=== PATIENT | female | born 1945 | race Caucasian/White ===

== ENCOUNTER 2017-05-07 18:41 | Inpatient (IN) | payer MEDICARE, BC ==
[~2017-05-07] VITALS: Ht 165.1 cm; Wt 67.6 kg
[~2017-05-07 18:41] MED LIST: /PANT40TA; /PANT40TA OR; /WARF5TA OR; ACET65TA; ALDA25TA2; ATEN25TA; ATEN25TA OR; ATENPOW; COUMADIN; KEFL500C; LISI20TA5 OR; PAIN325T OR; PRIN20TA3; SPIR25TA2 OR; THERGRAN; VITAMIN B6
[2017-05-07] MEDS ORDERED: LISI-538 PO (18:57)
[2017-05-07] MEDS ORDERED: ASPI1TAB PO (18:57)
[2017-05-07] MEDS ORDERED: ONDANSETRON 4MG/2ML VIAL (J2405) IV ONE (19:15)
[2017-05-07] MEDS ORDERED: MORPHINE 4 MG/ML 1ML SYRINGE IV ONE ×2 (19:15→20:15)
[2017-05-07 19:56] LABS: MEAN CORPUSCULAR HEMOGLOBIN 32.8 pg (27.0-33.0); MEAN CORPUSCULAR HGB CONC 33.6 g/dl (32.0-36.5); MEAN CORPUSCULAR VOLUME 97.4 fl (80.0-96.0); PLATELET COUNT, AUTOMATED 251 10^3/uL (150-450); RED CELL DISTRIBUTION WIDTH 13.2 % (11.5-14.5); WHITE BLOOD COUNT 6.9 10^3/uL (4.0-10.0)
[2017-05-07 19:59] LABS: ANION GAP 7 MEQ/L (8-16); BLOOD UREA NITROGEN 17 MG/DL (7-18); CALCIUM LEVEL 9.1 MG/DL (8.8-10.2); CARBON DIOXIDE LEVEL 27 MEQ/L (21-32); CHLORIDE LEVEL 101 MEQ/L (98-107); CREATININE FOR GFR 0.88 MG/DL (0.55-1.02); GLOMERULAR FILTRATION RATE > 60.0 (>45); GLUCOSE, FASTING 108 MG/DL (80-110); POTASSIUM SERUM 4.1 MEQ/L (3.5-5.1); SODIUM LEVEL 135 MEQ/L (136-145)
--- NOTE | 2017-05-07 20:12 | REP ---
Clinical: Trauma. Fall. Technique: AP view of the pelvis with AP and cross-table lateral views of the left. Findings: There is a comminuted intertrochanteric fracture of the left proximal femur with overlying soft tissue swelling. Underlying chronic age-related degenerative changes noted through the pelvis and hips. Impression: Comminuted intertrochanteric fracture of the left proximal femur. Signed by Pawel Travis MD 05/07/2017 08:04 P
--- NOTE | 2017-05-07 20:14 | REP ---
Clinical: Trauma. Fall. Technique: AP and lateral views of the femur. Findings: Comminuted intertrochanteric fracture of the proximal femur is appreciated. Mild to moderate tricompartmental degenerative changes at the knee noted. No other fracture dislocation identified. Impression: Comminuted intertrochanteric fracture of the left proximal femur. Underlying age-related osteopenia and degenerative changes. Signed by Pawel Travis MD 05/07/2017 08:05 P
--- NOTE | 2017-05-07 20:17 | REP ---
Clinical: Trauma. Fall. Comparison: 05/01/2016. Findings: Cardiomegaly and chronic interstitial changes are appreciated. No obvious acute consolidation, effusion, or pneumothorax. Skeletal structures are intact. Impression: Cardiomegaly and chronic interstitial changes. No acute cardiopulmonary process appreciated. Signed by Pawel Travis MD 05/07/2017 08:08 P
[2017-05-07] MEDS ORDERED: zolPIDEM TARTRATE 10MG TAB PO PRN (21:30)
[2017-05-07] MEDS ORDERED: ONDANSETRON 4MG/2ML VIAL (J2405) IV PRN (21:30)
[2017-05-07] MEDS ORDERED: ceFAZolin 1GM INJ (J0690) IM ONE (21:30)
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
[2017-05-07 22:40] VITALS: BP 164/95
[2017-05-07] MEDS: NS 1,000 ML IV SCH (23:09)
[2017-05-07] MEDS: METOPROLOL TART 25 MG TABLET PO SCH (23:10)
[2017-05-08] VITALS (7 sets, daily range): BP systolic 118–170; BP diastolic 72–96
[2017-05-08] MEDS ORDERED: CEFAZOLIN SOD 1 GM in APPROPRIATE DILUENT 1 EA IV SCH ×2
[2017-05-08] MEDS: MORPHINE 2 MG/ML 1ML SYRINGE IV PRN ×2 (00:18→05:41)
[2017-05-08] MEDS: ACETAMINOPHEN TAB 650MG DOSE (2X325MG) PO PRN ×2 (00:19→05:41)
--- NOTE | 2017-05-08 02:08 | HPE ---
DATE OF ADMISSION: 05/07/2017 The patient, Jade Matute, is a 71-year-old female. Patient comes in with a chief complaint of falling off of ladder. HISTORY OF PRESENT ILLNESS: Patient is a 71-year-old female with medical history significant for atrial fibrillation, not currently on rate control or anticoagulation, just aspirin. No anticoagulant secondary to severe to gastrointestinal (GI) bleeds secondary to anticoagulation in the past. Patient was doing some work up on a ladder where the ladder gave out from under her. She fell and hit the concrete on her left side. She was brought in to the emergency department (ED) where they found that she had a left-sided hip fracture. REVIEW OF SYSTEMS: Patient without any other acute complaints beyond pain secondary to the hip fracture. Patient was not dizzy or lightheaded or have balance issues prior to the fall. It was a mechanical fall. FAMILY HISTORY: Patient's mother's side with breast cancer and diabetes on her father's side. MEDICATIONS: The patient's home medications include only lisinopril and aspirin. Both hold prior to surgery. ALLERGIES: Patient with no known drug allergies. Patient with no history of smoking, drugs or alcohol abuse. PHYSICAL EXAMINATION: Patient resting when I came in, was in some pain secondary to the fracture; however, was not rising, lying still and calmly. Alert and oriented times three with normal affect and normal mood. Patient actually in a good mood. S1, S2, irregular, also on the telemetry showing irregular heart beat as on EKG. On auscultation of lateral lung almaguer good inspiratory, expiratory effort. No wheezes, rhonchi or rales. Abdomen is soft, nontender to palpation. The patient's left leg is slightly flexed and rotated out and clearly shorter than the right. Patient with extreme pain on moving. Patient's upper extremities are with good range of motion. Muscular strength 5/5. Skin is warm and dry. No apparent lymphadenopathy. Neck is supple with no rigidity. Extraocular movements intact. Pupils equal and reactive to light and accommodation. Patient with grossly good hearing. Cranial nerves (CN) II-XII grossly intact. LABORATORY RESULTS: WBC 6.9, hemoglobin and hematocrit 11.5/34.2, platelet count 251. Coagulation panel within normal limits. Chemistry grossly normal. IMAGING: Impression is cardiomegaly, chronic interstitial changes, no acute cardiopulmonary process appreciated on chest x-ray. Hip x-ray shows comminuted intertrochanteric fracture of the left proximal femur , underlying age-related osteopenia and degenerative changes. ASSESSMENT AND PLAN: Patient is a 71-year-old female with previous medical history as noted above status post fall with left hip fracture. Orthopedics already saw the patient. Plan is for surgery in the morning. Patient not to be on anticoagulation postsurgery as per conversation given this extreme high risk for bleeding; however, baby aspirin versus regular aspirin to be considered. Patient's complete blood count (CBC) is to be done twice a day instead of daily to monitor for blood loss on aspirin. Although patient not on beta blockers for unclear reason, given the risks and given the borderline tachycardia of the patient at this time, I believe patient would benefit from beta blockers. Left message with patient's primary medical doctor (PMD), who the call doctor will return to me if he can ascertain the reason the patient is not currently on beta blockers. Following any other information risks versus benefit, Lopressor 12.5 twice a day to be started now and given again before surgery in the morning prior to surgery. For hypertension, will hold patient's lisinopril prior to surgery. Patient to be nothing by mouth. Atrial fibrillation. Patient on aspirin, to be held prior to surgery. Deep venous thrombosis (DVT) prophylaxis. As noted above, patient to be on intermittent pneumatic compression. Gastrointestinal (GI) prophylaxis. Patient to be on proton pump inhibitor (PPI). Type, screen and cross done. Will keep two units at the ready given patient's propensity for bleeding. I first saw patient 05/07/2017. Given the patient's fracture, need for surgical correction, I am almost certain that a two midnight stay is warranted. I have discussed the plan with Surgery and the patient has been optimized for Surgery with Precautions taken given the Hx of Bleed on AC Tx MTDD
[2017-05-08 05:50] LABS: MEAN CORPUSCULAR HEMOGLOBIN 32.6 pg (27.0-33.0); MEAN CORPUSCULAR VOLUME 95.8 fl (80.0-96.0); PLATELET COUNT, AUTOMATED 217 10^3/uL (150-450); RED CELL DISTRIBUTION WIDTH 12.9 % (11.5-14.5); WHITE BLOOD COUNT 6.3 10^3/uL (4.0-10.0)
[2017-05-08 06:07] LABS: ANION GAP 7 MEQ/L (8-16); BLOOD UREA NITROGEN 15 MG/DL (7-18); CALCIUM LEVEL 8.3 MG/DL (8.8-10.2); CARBON DIOXIDE LEVEL 25 MEQ/L (21-32); CHLORIDE LEVEL 102 MEQ/L (98-107); CREATININE FOR GFR 0.75 MG/DL (0.55-1.02); GLOMERULAR FILTRATION RATE > 60.0 (>45); GLUCOSE, FASTING 98 MG/DL (80-110); POTASSIUM SERUM 4.3 MEQ/L (3.5-5.1); SODIUM LEVEL 134 MEQ/L (136-145)
--- NOTE | 2017-05-08 07:23 | IPNPDOC ---
Text Note Date of Service The patient was seen on 05/08/17. NOTE Patient has been medically optimized for planned surgical intervention today as per discussion with admitting physician. VS,Fishbone, I+O VS, Fishbone, I+O Laboratory Tests 05/07/17 19:30 Red Blood Count 3.51 L, Mean Corpuscular Volume 97.4 H, Mean Corpuscular Hemoglobin 32.8, Mean Corpuscular Hemoglobin Concent 33.6, Red Cell Distribution Width 13.2, Calcium Level 9.1 05/08/17 05:08 Red Blood Count 3.07 L, Mean Corpuscular Volume 95.8, Mean Corpuscular Hemoglobin 32.6, Mean Corpuscular Hemoglobin Concent 34.0, Red Cell Distribution Width 12.9, Calcium Level 8.3 L Vital Signs Date Time Temp Pulse Resp B/P (MAP) Pulse Ox O2 Delivery O2 Flow Rate FiO2 05/08/17 06:00 97.4 73 16 118/77 (91) 99 Room Air I&O- Last 24 Hours up to 6 AM 05/09/17 06:00 Intake Total 800 ml Balance 800 ml HAI HENSON MD May 08, 2017 07:23
[2017-05-08] MEDS: NS 1,000 ML IV SCH ×2 (08:56→17:14)
[2017-05-08] MEDS: PANTOPRAZOLE 40MG TAB (PROTONIX) PO SCH (08:56)
[2017-05-08] MEDS: METOPROLOL TART 25 MG TABLET PO SCH (08:59)
[2017-05-08] MEDS ORDERED: ceFAZolin 1GM INJ (J0690) As Ordered ONE (09:30)
[2017-05-08] MEDS ORDERED: ceFAZolin 2 GM/D5W 50 ML IV BAG (J0690) As Ordered ONE (09:49)
[2017-05-08] MEDS ORDERED: MIDAZOLAM INJ 2 MG/2 ML VIAL (J2250) As Ordered ONE (10:20)
[2017-05-08] MEDS ORDERED: ePHEDrine SULFATE 25 MG/5 ML(5MG/ML) SYRINGE As Ordered ONE (10:20)
[2017-05-08] MEDS ORDERED: KETAMINE HCL 200 MG/20 ML VIAL As Ordered ONE (10:20)
[2017-05-08] MEDS ORDERED: PROPOFOL 200 MG/20 ML VIAL As Ordered ONE (10:20)
[2017-05-08] MEDS ORDERED: PHENYLephrine HCL 500 MCG/5 ML (100MCG/ML) SYRINGE (J2370) As Ordered ONE (10:38)
--- NOTE | 2017-05-08 11:43 | REP ---
Clinical: Open reduction and fixation. Technique: Intraoperative fluoroscopic imaging. Findings: Multiple intraoperative fluoroscopic images demonstrate the patient to be status post open reduction and fixation for intertrochanteric left hip fracture. Intermedullary thomas and compression screw are identified in satisfactory position along with satisfactory reduction of the fracture. Total fluoroscopic time 1 minute 35 seconds. Impression: Status post satisfactory open reduction and fixation for comminuted intertrochanteric fracture Signed by Pawel Travis MD 05/08/2017 11:34 A
[2017-05-08] MEDS ORDERED: MORPHINE 2 MG/ML 1ML SYRINGE IV PRN (11:45)
[2017-05-08] MEDS ORDERED: ONDANSETRON 4MG/2ML VIAL (J2405) IV PRN (11:45)
[2017-05-08] MEDS ORDERED: fentaNYL 100 MCG/2 ML INJECTION (J3010) IV PRN (11:45)
[2017-05-08] MEDS ORDERED: NS 1,000 ML IV SCH (11:45)
[2017-05-08] MEDS ORDERED: NORCO, ANEXSIA 5/325MG TABLET (HYDROcodone/ACETAMINOPHEN) PO PRN (13:00)
[2017-05-08] MEDS: NORCO, ANEXSIA 5/325MG TABLET (HYDROcodone/ACETAMINOPHEN) PO PRN ×2 (13:46→20:49)
[2017-05-08] MEDS: MORPHINE 4 MG/ML 1ML SYRINGE IV PRN ×2 (14:29→16:59)
[2017-05-08] MEDS: ONDANSETRON 4 MG TAB (S0181) PO PRN (17:14)
[2017-05-08 18:06] LABS: BASO % 0.6 % (0.0-1.0); EOS % 0.3 % (0.0-3.0); IMMATURE GRANULOCYTE % 0.3 % (0-0); LYMPH # 0.9 10^3/uL (1.5-4.5); LYMPH % 12.5 % (24.0-44.0); MEAN CORPUSCULAR HEMOGLOBIN 32.7 pg (27.0-33.0); MEAN CORPUSCULAR HGB CONC 33.3 g/dl (32.0-36.5); MEAN CORPUSCULAR VOLUME 98.2 fl (80.0-96.0); MONO # 0.5 10^3/uL (0.0-0.8); MONO % 7.3 % (0.0-5.0); NEUTROPHILS # 5.7 10^3/uL (1.8-7.7); PLATELET COUNT, AUTOMATED 196 10^3/uL (150-450); RED CELL DISTRIBUTION WIDTH 13.1 % (11.5-14.5); WHITE BLOOD COUNT 7.3 10^3/uL (4.0-10.0)
[2017-05-08] MEDS: METOPROLOL TART 12.5 MG PER 1/2 TAB PO SCH (20:48)
[2017-05-09] MEDS: ONDANSETRON 4 MG TAB (S0181) PO PRN ×2 (01:14→09:35)
[2017-05-09] MEDS: NORCO, ANEXSIA 5/325MG TABLET (HYDROcodone/ACETAMINOPHEN) PO PRN ×5 (01:16→21:13)
[2017-05-09 02:00] VITALS: BP 141/79
[2017-05-09 06:00] VITALS: BP 115/75
[2017-05-09 06:47] LABS: MEAN CORPUSCULAR HEMOGLOBIN 32.9 pg (27.0-33.0); MEAN CORPUSCULAR HGB CONC 33.5 g/dl (32.0-36.5); MEAN CORPUSCULAR VOLUME 98.4 fl (80.0-96.0); PLATELET COUNT, AUTOMATED 171 10^3/uL (150-450); RED CELL DISTRIBUTION WIDTH 13.1 % (11.5-14.5); WHITE BLOOD COUNT 5.3 10^3/uL (4.0-10.0)
[2017-05-09] MEDS: NS 1,000 ML IV SCH (07:01)
[2017-05-09 07:08] LABS: ANION GAP 6 MEQ/L (8-16); BLOOD UREA NITROGEN 10 MG/DL (7-18); CALCIUM LEVEL 8.3 MG/DL (8.8-10.2); CARBON DIOXIDE LEVEL 26 MEQ/L (21-32); CHLORIDE LEVEL 105 MEQ/L (98-107); CREATININE FOR GFR 0.63 MG/DL (0.55-1.02); GLOMERULAR FILTRATION RATE > 60.0 (>45); GLUCOSE, FASTING 110 MG/DL (80-110); SODIUM LEVEL 137 MEQ/L (136-145)
--- NOTE | 2017-05-09 07:31 | RO ---
DATE OF PROCEDURE: 05/08/2017 PREOPERATIVE DIAGNOSIS: Left intertrochanteric hip fracture. POSTOPERATIVE DIAGNOSIS: Left intertrochanteric hip fracture. PROCEDURE: Left intertrochanteric hip fracture with fixation with short trochanteric femoral nail with a 100 mm cephalomedullary twist nail. SURGEON: Angela Johnson MD SENIOR SUPPORT ENGINEER: ANESTHESIA: Spinal. COMPLICATIONS: None. ESTIMATED BLOOD LOSS: 50 mL. DESCRIPTION OF PROCEDURE: Antibiotics were given intravenously preoperatively. A successful spinal anesthetic was induced then she was placed on the fracture table. Her well leg was wrapped in pillows and secured to the frame of the fracture table. Her left hip was placed in traction in the usual fashion, then a closed reduction was performed under fluoroscopic imaging confirming that we could get reasonable reduction. The left hip area was then carefully prepped and draped in the usual sterile fashion. Then, after appropriate time out, under fluoroscopic image, a small approximately 1-2 inch incision was made proximal to the greater trochanter. Bovie cautery was used to coagulate the crossing vessels. The tensor fascia was divided. The tip of the trochanteric change management director awl was placed in the appropriate position and the threaded ball tip guide thomas was placed down the canal. At first, it looked like we were just a bit to posterior and thus I readjusted the entry to more anterior on the trochanter and that was quite acceptably aligned in the AP and lateral planes. The proximal drill was then used to drill down to the level of the lesser trochanter and the short 130 degree trochanteric femoral nail was inserted. We chose the 130 degrees because preoperatively we measured on her opposite right hip to be greater than 130, but it actually measured 135, but the only available nail was a 125 or 130. I felt that 130 was most appropriate therefore. The nail was introduced and set appropriate. I made a small incision through the cephalomedullary nail drill guide hole on the introducing device, then advanced the drill sleeve to the lateral femoral cortex under fluoroscopic imaging. I then drilled the threaded guidepin such that it came out approximately centered in the femoral neck and the femoral head on the AP and lateral planes. Once we were satisfied with the position, we measured and elected to drill to 100 mm and that was do so, and then we advanced the cephalomedullary twist nail into the appropriate position. We then locked it proximally and then backed off a quarter of a turn, and then I removed the change management director for the cephalomedullary nail. Then the scalpel blade was used to make a small stab incision for the distal interlock and the distal interlock screw sleeve guide was advanced to the lateral femoral cortex. Then under fluoroscopic imaging we drilled and measured at 34 mm and then a 34 mm screw was placed with excellent purchase. I then removed all the insertion devices and I got good final fluoroscopic imaging in the AP and lateral planes showing good reduction of the fracture and good position of the hardware. I copiously irrigated the wound proximally, closed the tensor fascia with interrupted #1 PDS sutures. Subdermal tissues were closed with interrupted #2-0 PDS sutures. The skin was closed with mani and covered by Adaptic dry sterile bulky dressing. She was then transferred off the fracture table to her bed and went to the recovery room in stable condition. There were no intraoperative complications.
[2017-05-09] MEDS: PANTOPRAZOLE 40MG TAB (PROTONIX) PO SCH (08:08)
[2017-05-09] MEDS: ASPIRIN 325 MG TAB PO SCH (08:08)
[2017-05-09] MEDS: MIRALAX *UNIT DOSE* 17GM PACKET PO SCH (08:09)
[2017-05-09] MEDS: SENOKOT S TAB PO SCH ×2 (08:09→21:12)
[2017-05-09] MEDS: METOPROLOL TART 12.5 MG PER 1/2 TAB PO SCH ×2 (08:09→21:14)
[2017-05-09] MEDS: MOM 30ML SUSPENSION UDC PO SCH ×3 (08:09→17:07)
--- NOTE | 2017-05-09 08:57 | IPNPDOC ---
Text Note Date of Service The patient was seen on 05/09/17. NOTE Subjective: Patient seen and examined at bedside. No acute overnight events. Patient has some pain in her left leg, otherwise no new medical complaints. Objective: General: NAD, lying comfortably in bed HEENT: NC/AT, EOMI Lungs: CTA B/L Heart: +S1S2, irregularly irregular Abd: soft, NT, +BS Ext: no edema ASSESSMENT AND PLAN: Patient is a 71-year-old female with previous medical history as noted above status post fall with left hip fracture. 1. Left hip Fx. POD #1. Continue to follow as per ortho. 2. Afib. Patient did not tolerate oral anticoagulation as outpatient. Will continue with aspirin, dosage as per ortho. BB was also started as inpatient. 3. HTN - ACEI on hold. BB as per above. 4. DVT prophylaxis - as per ortho. 5. GI prophylaxis. Patient started on PPI on admission. Dispo: pending further follow up by ortho, PT VS,Antonio, I+O VS, Antonio, I+O Laboratory Tests 05/08/17 17:54 Red Blood Count 2.78 L, Mean Corpuscular Volume 98.2 H, Mean Corpuscular Hemoglobin 32.7, Mean Corpuscular Hemoglobin Concent 33.3, Red Cell Distribution Width 13.1, Neutrophils (%) (Auto) 79.0 H, Lymphocytes (%) (Auto) 12.5 L, Monocytes (%) (Auto) 7.3 H, Eosinophils (%) (Auto) 0.3, Basophils (%) ( Auto) 0.6, Neutrophils # (Auto) 5.7, Lymphocytes # (Auto) 0.9 L, Monocytes # ( Auto) 0.5, Eosinophils # (Auto) 0.0, Basophils # (Auto) 0.0 05/09/17 06:16 Red Blood Count 2.58 L, Mean Corpuscular Volume 98.4 H, Mean Corpuscular Hemoglobin 32.9, Mean Corpuscular Hemoglobin Concent 33.5, Red Cell Distribution Width 13.1, Calcium Level 8.3 L Vital Signs Date Time Temp Pulse Resp B/P (MAP) Pulse Ox O2 Delivery O2 Flow Rate FiO2 05/09/17 08:09 92 116/79 05/09/17 07:15 16 05/09/17 06:00 98.8 99 Room Air 05/08/17 11:45 2 HAI HENSON MD May 09, 2017 08:57
--- NOTE | 2017-05-09 09:58 | REP ---
Clinical: Postoperative evaluation. Technique: AP and cross-table lateral views of the left hip. Findings: The patient is status post open reduction and fixation for left intertrochanteric fracture. Satisfactory reduction at the hip joint noted. Overlying postsurgical changes are appreciated. Impression: Status post open reduction and fixation for intertrochanteric femoral neck fracture. Signed by Pawel Travis MD 05/09/2017 09:49 A
[2017-05-09 10:00] VITALS: BP 124/64
[2017-05-09 14:00] VITALS: BP 110/65
[2017-05-09 18:12] LABS: BASO % 0.6 % (0.0-1.0); EOS # 0.1 10^3/uL (0.0-0.50); EOS % 0.9 % (0.0-3.0); IMMATURE GRANULOCYTE % 0.3 % (0-0); LYMPH % 15.3 % (24.0-44.0); MEAN CORPUSCULAR HEMOGLOBIN 33.1 pg (27.0-33.0); MEAN CORPUSCULAR HGB CONC 33.6 g/dl (32.0-36.5); MEAN CORPUSCULAR VOLUME 98.5 fl (80.0-96.0); MONO # 0.6 10^3/uL (0.0-0.8); MONO % 9.3 % (0.0-5.0); NEUTROPHILS # 4.7 10^3/uL (1.8-7.7); NEUTROPHILS % 73.6 % (36.0-66.0); PLATELET COUNT, AUTOMATED 172 10^3/uL (150-450); WHITE BLOOD COUNT 6.4 10^3/uL (4.0-10.0)
[2017-05-09 22:00] VITALS: BP 119/71
[2017-05-10] MEDS: NORCO, ANEXSIA 5/325MG TABLET (HYDROcodone/ACETAMINOPHEN) PO PRN ×5 (02:44→22:30)
[2017-05-10 06:00] VITALS: BP 121/66
[2017-05-10 07:08] LABS: MEAN CORPUSCULAR HEMOGLOBIN 32.9 pg (27.0-33.0); MEAN CORPUSCULAR HGB CONC 33.3 g/dl (32.0-36.5); MEAN CORPUSCULAR VOLUME 98.7 fl (80.0-96.0); PLATELET COUNT, AUTOMATED 151 10^3/uL (150-450); WHITE BLOOD COUNT 5.6 10^3/uL (4.0-10.0)
[2017-05-10 07:25] LABS: ANION GAP 6 MEQ/L (8-16); BLOOD UREA NITROGEN 10 MG/DL (7-18); CALCIUM LEVEL 8.3 MG/DL (8.8-10.2); CARBON DIOXIDE LEVEL 26 MEQ/L (21-32); CHLORIDE LEVEL 102 MEQ/L (98-107); CREATININE FOR GFR 0.54 MG/DL (0.55-1.02); GLOMERULAR FILTRATION RATE > 60.0 (>45); GLUCOSE, FASTING 106 MG/DL (80-110); POTASSIUM SERUM 4.1 MEQ/L (3.5-5.1); SODIUM LEVEL 134 MEQ/L (136-145)
[2017-05-10] MEDS ORDERED: ASPI325T PO (07:36)
[2017-05-10] MEDS ORDERED: PERC5TAB12 PO (07:36)
--- NOTE | 2017-05-10 07:45 | IPNPDOC ---
Text Note Date of Service The patient was seen on 05/10/17. NOTE Subjective: Patient seen and examined at bedside. No acute overnight events. States she is feeling better. Her appetite has improved. She still has some pain in her left leg, otherwise no new medical complaints. Objective: General: NAD, lying comfortably in bed HEENT: NC/AT, EOMI Lungs: CTA B/L Heart: +S1S2, irregularly irregular Abd: soft, NT, +BS Ext: no edema ASSESSMENT AND PLAN: Patient is a 71-year-old female with previous medical history as noted above status post fall with left hip fracture. 1. Left hip Fx. POD #2. Continue to follow as per ortho. 2. Afib. Patient did not tolerate oral anticoagulation as outpatient. Will continue with aspirin, dosage as per ortho. BB was also started as inpatient. 3. HTN - ACEI on hold. BB as per above. 4. DVT prophylaxis - as per ortho. 5. GI prophylaxis. Patient started on PPI on admission. 6. Anemia - asymptomatic, ordered serial H/H, transfuse if Hg<7 Dispo: pending further follow up by ortho, PT, ARU VS,Antonio, I+O VS, Antonio, I+O Laboratory Tests 05/09/17 18:00 Red Blood Count 2.63 L, Mean Corpuscular Volume 98.5 H, Mean Corpuscular Hemoglobin 33.1 H, Mean Corpuscular Hemoglobin Concent 33.6, Red Cell Distribution Width 13.0, Neutrophils (%) (Auto) 73.6 H, Lymphocytes (%) (Auto) 15.3 L, Monocytes (%) (Auto) 9.3 H, Eosinophils (%) (Auto) 0.9, Basophils (%) ( Auto) 0.6, Neutrophils # (Auto) 4.7, Lymphocytes # (Auto) 1.0 L, Monocytes # ( Auto) 0.6, Eosinophils # (Auto) 0.1, Basophils # (Auto) 0.0 05/10/17 06:15 Red Blood Count 2.31 L, Mean Corpuscular Volume 98.7 H, Mean Corpuscular Hemoglobin 32.9, Mean Corpuscular Hemoglobin Concent 33.3, Red Cell Distribution Width 13.0, Calcium Level 8.3 L Vital Signs Date Time Temp Pulse Resp B/P (MAP) Pulse Ox O2 Delivery O2 Flow Rate FiO2 05/10/17 06:00 97.6 82 18 121/66 (84) 95 Room Air 05/08/17 11:45 2 HAI HENSON MD May 10, 2017 07:45
[2017-05-10] MEDS: MIRALAX *UNIT DOSE* 17GM PACKET PO SCH (07:58)
[2017-05-10] MEDS: METOPROLOL TART 12.5 MG PER 1/2 TAB PO SCH ×2 (07:58→21:06)
[2017-05-10] MEDS: MOM 30ML SUSPENSION UDC PO SCH (07:58)
[2017-05-10] MEDS: PANTOPRAZOLE 40MG TAB (PROTONIX) PO SCH (07:58)
[2017-05-10] MEDS: ASPIRIN 325 MG TAB PO SCH (07:58)
[2017-05-10] MEDS: SENOKOT S TAB PO SCH ×2 (07:59→21:00)
[2017-05-10 08:00] VITALS: BP 137/73
--- NOTE | 2017-05-10 08:04 | ECGEPIP ---
Stationary ECG Study [facility] - ED Test Date: 2017-05-07 Pat Name: PIETRO JOSEPH Department: Room: [place] [address] Gender: F Hospital Pharmacy Technician: MolinaB: [id number] Requested By: ULISES ALMONTE Order Number: [id number] Reading MD: Dejuan Horowitz Measurements Intervals [place] Rate: 82 P: GA: 0 QRS: 81 QRSD: 118 T: -47 QT: 384 QTc: 449 Interpretive Statements ATRIAL FIBRILLATION INCOMPLETE RIGHT BUNDLE BRANCH BLOCK NONSPECIFIC T-WAVE ABNORMALITY NO PRIORS FOR COMPARISON Electronically Signed On 05-10-2017 8:04:38 EST by Dejuan Horowitz
[2017-05-10] MEDS: ONDANSETRON 4 MG TAB (S0181) PO PRN (18:18)
[2017-05-10 22:00] VITALS: BP 134/75
[2017-05-11 00:33] LABS: BASO % 0.6 % (0.0-1.0); EOS # 0.2 10^3/uL (0.0-0.50); EOS % 2.1 % (0.0-3.0); IMMATURE GRANULOCYTE % 0.3 % (0-0); LYMPH # 1.9 10^3/uL (1.5-4.5); LYMPH % 26.1 % (24.0-44.0); MEAN CORPUSCULAR HEMOGLOBIN 31.3 pg (27.0-33.0); MEAN CORPUSCULAR HGB CONC 33.2 g/dl (32.0-36.5); MEAN CORPUSCULAR VOLUME 94.4 fl (80.0-96.0); MONO # 0.8 10^3/uL (0.0-0.8); MONO % 10.5 % (0.0-5.0); NEUTROPHILS # 4.4 10^3/uL (1.8-7.7); NEUTROPHILS % 60.4 % (36.0-66.0); PLATELET COUNT, AUTOMATED 174 10^3/uL (150-450); WHITE BLOOD COUNT 7.3 10^3/uL (4.0-10.0)
[2017-05-11] MEDS: NORCO, ANEXSIA 5/325MG TABLET (HYDROcodone/ACETAMINOPHEN) PO PRN ×4 (05:33→22:57)
[2017-05-11 06:00] VITALS: BP 170/95
[2017-05-11 07:14] LABS: MEAN CORPUSCULAR HEMOGLOBIN 31.7 pg (27.0-33.0); MEAN CORPUSCULAR HGB CONC 33.8 g/dl (32.0-36.5); MEAN CORPUSCULAR VOLUME 93.7 fl (80.0-96.0); PLATELET COUNT, AUTOMATED 168 10^3/uL (150-450); RED CELL DISTRIBUTION WIDTH 16.2 % (11.5-14.5); WHITE BLOOD COUNT 5.6 10^3/uL (4.0-10.0)
[2017-05-11 07:34] LABS: ANION GAP 6 MEQ/L (8-16); BLOOD UREA NITROGEN 12 MG/DL (7-18); CALCIUM LEVEL 8.2 MG/DL (8.8-10.2); CARBON DIOXIDE LEVEL 26 MEQ/L (21-32); CHLORIDE LEVEL 99 MEQ/L (98-107); CREATININE FOR GFR 0.58 MG/DL (0.55-1.02); GLOMERULAR FILTRATION RATE > 60.0 (>45); GLUCOSE, FASTING 102 MG/DL (80-110); POTASSIUM SERUM 4.4 MEQ/L (3.5-5.1); SODIUM LEVEL 131 MEQ/L (136-145)
--- NOTE | 2017-05-11 07:44 | IPNPDOC ---
Text Note Date of Service The patient was seen on 05/11/17. NOTE Subjective: Patient seen and examined at bedside. Complains of shortness of breath, appears somewhat anxious. Required 2 units PRBC yesterday due to symptomatic anemia during PT. Objective: General: NAD, lying comfortably in bed, somewhat anxious HEENT: NC/AT, EOMI Lungs: CTA B/L Heart: +S1S2, irregularly irregular Abd: soft, NT, +BS Ext: no edema ASSESSMENT AND PLAN: Patient is a 71-year-old female with previous medical history as noted above status post fall with left hip fracture, hospital stay complicated with acute blood anemia. 1. Left hip Fx. POD #3. Continue to follow as per ortho. 2. Afib. Patient did not tolerate oral anticoagulation as outpatient. Will continue with aspirin, dosage as per ortho. BB was also started as inpatient. 3. HTN - ACEI on hold. BB as per above. 4. DVT prophylaxis - as per ortho. 5. GI prophylaxis. Patient started on PPI on admission. 6. Anemia - acute blood loss anemia secondary to traumatic fracture and surgical repair s/p 2 units PRBC, continue to monitor H/H Dispo: monitor H/H, pending further follow up by ortho, PT, ARU VS,Antonio, I+O VS, Antonio, I+O Laboratory Tests 05/10/17 23:38 Red Blood Count 3.19 L, Mean Corpuscular Volume 94.4, Mean Corpuscular Hemoglobin 31.3, Mean Corpuscular Hemoglobin Concent 33.2, Red Cell Distribution Width 16.0 H, Neutrophils (%) (Auto) 60.4, Lymphocytes (%) (Auto) 26.1, Monocytes (%) (Auto) 10.5 H, Eosinophils (%) (Auto) 2.1, Basophils (%) ( Auto) 0.6, Neutrophils # (Auto) 4.4, Lymphocytes # (Auto) 1.9, Monocytes # (Auto ) 0.8, Eosinophils # (Auto) 0.2, Basophils # (Auto) 0.0 05/11/17 06:51 Red Blood Count 2.84 L, Mean Corpuscular Volume 93.7, Mean Corpuscular Hemoglobin 31.7, Mean Corpuscular Hemoglobin Concent 33.8, Red Cell Distribution Width 16.2 H, Calcium Level 8.2 L Vital Signs Date Time Temp Pulse Resp B/P (MAP) Pulse Ox O2 Delivery O2 Flow Rate FiO2 05/11/17 06:03 16 Room Air 05/11/17 06:00 98.5 80 170/95 (120) 99 05/08/17 11:45 2 HAI HENSON MD May 11, 2017 07:44
[2017-05-11] MEDS: ASPIRIN 325 MG TAB PO SCH (08:20)
[2017-05-11] MEDS: PANTOPRAZOLE 40MG TAB (PROTONIX) PO SCH (08:21)
[2017-05-11] MEDS: MIRALAX *UNIT DOSE* 17GM PACKET PO SCH (08:21)
[2017-05-11] MEDS: METOPROLOL TART 12.5 MG PER 1/2 TAB PO SCH ×2 (08:21→21:09)
[2017-05-11] MEDS: MOM 30ML SUSPENSION UDC PO SCH (08:21)
[2017-05-11] MEDS: SENOKOT S TAB PO SCH ×2 (08:21→21:00)
[2017-05-11 14:00] VITALS: BP 158/83
[2017-05-11 18:22] LABS: BASO % 0.7 % (0.0-1.0); EOS # 0.1 10^3/uL (0.0-0.50); EOS % 2.6 % (0.0-3.0); IMMATURE GRANULOCYTE % 0.4 % (0-0); LYMPH # 1.1 10^3/uL (1.5-4.5); LYMPH % 19.6 % (24.0-44.0); MEAN CORPUSCULAR HEMOGLOBIN 31.4 pg (27.0-33.0); MEAN CORPUSCULAR HGB CONC 33.2 g/dl (32.0-36.5); MEAN CORPUSCULAR VOLUME 94.5 fl (80.0-96.0); MONO # 0.6 10^3/uL (0.0-0.8); MONO % 10.1 % (0.0-5.0); NEUTROPHILS # 3.6 10^3/uL (1.8-7.7); NEUTROPHILS % 66.6 % (36.0-66.0); PLATELET COUNT, AUTOMATED 181 10^3/uL (150-450); WHITE BLOOD COUNT 5.4 10^3/uL (4.0-10.0)
[2017-05-11 22:00] VITALS: BP 152/78
[2017-05-12] MEDS: NORCO, ANEXSIA 5/325MG TABLET (HYDROcodone/ACETAMINOPHEN) PO PRN ×2 (05:31→10:22)
[2017-05-12 06:00] VITALS: BP 158/96
[2017-05-12 07:03] LABS: ANION GAP 5 MEQ/L (8-16); BLOOD UREA NITROGEN 11 MG/DL (7-18); CALCIUM LEVEL 8.5 MG/DL (8.8-10.2); CARBON DIOXIDE LEVEL 31 MEQ/L (21-32); CHLORIDE LEVEL 98 MEQ/L (98-107); CREATININE FOR GFR 0.48 MG/DL (0.55-1.02); GLOMERULAR FILTRATION RATE > 60.0 (>45); GLUCOSE, FASTING 97 MG/DL (80-110); POTASSIUM SERUM 4.4 MEQ/L (3.5-5.1); SODIUM LEVEL 134 MEQ/L (136-145)
[2017-05-12 07:15] LABS: MEAN CORPUSCULAR HEMOGLOBIN 31.4 pg (27.0-33.0); MEAN CORPUSCULAR HGB CONC 33.6 g/dl (32.0-36.5); MEAN CORPUSCULAR VOLUME 93.5 fl (80.0-96.0); PLATELET COUNT, AUTOMATED 182 10^3/uL (150-450); RED CELL DISTRIBUTION WIDTH 15.2 % (11.5-14.5)
[2017-05-12] MEDS: ASPIRIN 325 MG TAB PO SCH (08:35)
[2017-05-12] MEDS: PANTOPRAZOLE 40MG TAB (PROTONIX) PO SCH (08:35)
[2017-05-12 08:36] VITALS: BP 127/87
[2017-05-12] MEDS: SENOKOT S TAB PO SCH (08:36)
[2017-05-12] MEDS: MIRALAX *UNIT DOSE* 17GM PACKET PO SCH (08:36)
[2017-05-12] MEDS: METOPROLOL TART 12.5 MG PER 1/2 TAB PO SCH (08:36)
[2017-05-12] MEDS: MOM 30ML SUSPENSION UDC PO SCH (08:36)
--- NOTE | 2017-05-12 08:54 | DS.PDOC ---
Discharge Summary General Date of Admission May 07, 2017 at 21:22 Date of Discharge 05/12/17 Discharge Summary PROCEDURES PERFORMED DURING STAY: [None]. DISCHARGE DIAGNOSES: 1. Left hip fracture s/p surgical repair 2. Afib 3. HTN 4. acute blood loss anemia secondary to traumatic fx and surgical repair s/p 2 units PRBC 5. Hyponatremia COMPLICATIONS/CHIEF COMPLAINT: Hip Fx. HISTORY OF PRESENT ILLNESS: Patient is a 71-year-old female with medical history significant for atrial fibrillation, not currently on rate control or anticoagulation, just aspirin. No anticoagulant secondary to severe to gastrointestinal (GI) bleeds secondary to anticoagulation in the past. Patient was doing some work up on a ladder where the ladder gave out from under her. She fell and hit the concrete on her left side. She was brought in to the emergency department (ED) where they found that she had a left-sided hip fracture. HOSPITAL COURSE: Patient admitted for surgical repair of left hip fracture. Hospital stay significant for symptomatic anemia requiring 2 units PRBC and hyponatremia. Patient responded well to treatment, and hospital stay otherwise unremarkable. Patient discharged to ARU today for further rehab. Will continue to monitor H/H and sodium. DISCHARGE MEDICATIONS: Please see below. ALLERGIES: Please see below. PHYSICAL EXAMINATION ON DISCHARGE: GENERAL: NAD, lying comfortably in bed HEENT: NC/AT, EOMI, PERRL NECK: supple CARDIOVASCULAR EXAMINATION: +S1S2, irregular RESPIRATORY EXAMINATION: CTA B/L ABDOMINAL EXAMINATION: soft, NT, +BS NEUROLOGICAL EXAMINATION: no gross focal deficits PSYCHIATRIC EXAMINATION: AAOx3 LABORATORY DATA: Please see below. ACTIVITY: As per ARU DIET: 2 gram sodium DISCHARGE PLAN: D/C to ARU DISCHARGE INSTRUCTIONS: 1. PCP in 3-5 days on discharge. 2. Further direction as per ARU. DISCHARGE CONDITION: [Stable]. TIME SPENT ON DISCHARGE: Greater than 30 minutes. Vital Signs/I&Os Vital Signs Date Time Temp Pulse Resp B/P (MAP) Pulse Ox O2 Delivery O2 Flow Rate FiO2 05/12/17 08:36 85 127/87 05/12/17 06:01 16 Room Air 05/12/17 06:00 97.8 95 05/08/17 11:45 2 Laboratory Data Labs 24H Laboratory Tests 2 05/11/17 18:13: Immature Granulocyte % (Auto) 0.4H, White Blood Count 5.4, Red Blood Count 3.09L , Hemoglobin 9.7L, Hematocrit 29.2L, Mean Corpuscular Volume 94.5, Mean Corpuscular Hemoglobin 31.4, Mean Corpuscular Hemoglobin Concent 33.2, Red Cell Distribution Width 16.0H, Platelet Count 181, Neutrophils (%) (Auto) 66.6H, Lymphocytes (%) (Auto) 19.6L, Monocytes (%) (Auto) 10.1H, Eosinophils (%) (Auto ) 2.6, Basophils (%) (Auto) 0.7, Neutrophils # (Auto) 3.6, Lymphocytes # (Auto) 1.1L, Monocytes # (Auto) 0.6, Eosinophils # (Auto) 0.1, Basophils # (Auto) 0.0, Immature Granulocyte # (Auto) 0.0, Nucleated Red Blood Cells % (auto) 0.0 05/12/17 06:09: Nucleated Red Blood Cells % (auto) 0.0, Anion Gap 5L, Glomerular Filtration Rate > 60.0, Blood Urea Nitrogen 11, Creatinine 0.48L, Sodium Level 134L, Potassium Level 4.4, Chloride Level 98, Carbon Dioxide Level 31, Calcium Level 8.5L CBC/BMP Laboratory Tests 05/11/17 18:13 Red Blood Count 3.09 L, Mean Corpuscular Volume 94.5, Mean Corpuscular Hemoglobin 31.4, Mean Corpuscular Hemoglobin Concent 33.2, Red Cell Distribution Width 16.0 H, Neutrophils (%) (Auto) 66.6 H, Lymphocytes (%) (Auto ) 19.6 L, Monocytes (%) (Auto) 10.1 H, Eosinophils (%) (Auto) 2.6, Basophils (% ) (Auto) 0.7, Neutrophils # (Auto) 3.6, Lymphocytes # (Auto) 1.1 L, Monocytes # (Auto) 0.6, Eosinophils # (Auto) 0.1, Basophils # (Auto) 0.0 05/12/17 06:09 Red Blood Count 2.93 L, Mean Corpuscular Volume 93.5, Mean Corpuscular Hemoglobin 31.4, Mean Corpuscular Hemoglobin Concent 33.6, Red Cell Distribution Width 15.2 H, Calcium Level 8.5 L Discharge Medications Scheduled Aspirin (Aspirin) 325 Mg Tab, 1 TAB PO DAILY X 3 Weeks Lisinopril (Lisinopril) 20 Mg Tab, 20 MG PO DAILY, (Reported) Scheduled PRN Oxycodone/Acetaminophen (Percocet 5-325 mg) 1 Tab Tab, 1-2 TAB PO Q4H PRN for PAIN Allergies Coded Allergies: No Known Drug Allergy (Verified Allergy, Unknown, 05/07/17) HAI HENSON MD May 12, 2017 08:54
== END 2017-05-12 11:55 | DRG 481 ==
LOC: EDBD 18:41 → M ED 18:41 → M ED INP 21:22 → M MS5PR 22:40
PROVIDERS: ADMIT Internal Medicine; ATTEND Internal Medicine
PROC: 0QS704Z Reposition Left Upper Femur with Internal Fixation Device, Open Approach (ICD-10-PCS; principal; 2017-05-08 09:30)
PROC: 30233N1 Transfusion of Nonautologous Red Blood Cells into Peripheral Vein, Percutaneous Approach (ICD-10-PCS; 2017-05-10)
DX: S72.142A Displaced intertrochanteric fracture of left femur, initial encounter for closed fracture (principal); D62 Acute posthemorrhagic anemia; E87.1 Hypo-osmolality and hyponatremia; I48.91 Unspecified atrial fibrillation; I10 Essential (primary) hypertension; W11.XXXA Fall on and from ladder, initial encounter; Y92.018 Other place in single-family (private) house as the place of occurrence of the external cause; Y93.9 Activity, unspecified; Y99.9 Unspecified external cause status; Z79.82 Long term (current) use of aspirin; Z79.899 Other long term (current) drug therapy

== ENCOUNTER 2017-05-11 10:41 | Inpatient (IN) | payer MEDICARE, BC ==
[~2017-05-11] VITALS: Ht 165.1 cm; Wt 67.6 kg
[~2017-05-11 10:41] MED LIST changes: +ASPI1TAB PO; +ASPI325T PO; +LISI-538 PO; +PERC5TAB12 PO
[2017-05-12] MEDS ORDERED: zolPIDEM TARTRATE 10MG TAB PO PRN (10:15)
[2017-05-12] MEDS ORDERED: MOM 30ML SUSPENSION UDC PO PRN (10:15)
[2017-05-12] MEDS ORDERED: MIRALAX *UNIT DOSE* 17GM PACKET PO PRN (10:15)
[2017-05-12 13:00] VITALS: BP 122/80
[2017-05-12] MEDS: NORCO, ANEXSIA 5/325MG TABLET (HYDROcodone/ACETAMINOPHEN) PO PRN ×2 (14:52→19:56)
[2017-05-12 15:00] VITALS: BP 155/79
--- NOTE | 2017-05-12 18:11 | PMRHPE ---
DATE OF ADMISSION: 05/12/2017 REASON FOR ADMISSION: Rehabilitation of left hip fracture complicated by probable GI bleed and severe anemia, status post transfusion, and atrial fibrillation with respiratory desaturation. HISTORY OF PRESENT ILLNESS: The patient is a 71-year-old white female who lives independently at home in a two story house with basement. On 05/07/2017 she was on a step stool in her basement and fell onto her left hip sustaining a left hip fracture and was brought to [facility] emergency department and found to have an intertrochanteric hip fracture and was evaluated by orthopedics and elected to have open reduction, internal fixation with intramedullary nail and screw fixation on the same day. The patient who has history of severe GI bleed whenever on anticoagulation for her atrial fibrillation, previously on Coumadin and Xarelto having a bleed developed severe blood loss in the postoperative course and desaturated to 79 during a treatment in physical therapy, and marked hypotension. The patient received transfusion times two and since then has had some problems with hypertension. Her respiratory compromise has cleared up. She has been progressing well in physical and occupational therapy and is very motivated to regain independence to return to living in her home alone. Her course also has involved some hyponatremia. PAST MEDICAL HISTORY: As noted above includes atrial fibrillation, hypertension, recurrent GI blood losses, hyponatremia. FAMILY HISTORY: Noncontributory. SOCIAL HISTORY: The patient lives alone. She is right-handed. She does not smoke, drink alcohol or use illicit drugs and was previously independent in all activities of daily living (ADLs) and mobility. She does have numerous children and some grandchildren. MEDICATIONS ON ADMISSION: - Tylenol - [place] 5/325 - aspirin 325 mg daily - Senokot S - Lopressor 12.5 mg twice a day - milk of magnesia 3 mL daily as needed constipation - pantoprazole 40 mg every day - MiraLAX one packet daily as needed constipation - Ambien 10 mg at bedtime as needed insomnia ALLERGIES: The patient with no known drug allergies. REVIEW OF SYSTEMS: Except for symptoms previously noted above including hip pain on the left, negative on a 10-point system. PHYSICAL EXAMINATION: The patient is a pleasant, alert and well oriented 5 foot 5, 67.6 kg late middle-aged white female who looks a little younger than stated age. Temperature is 97.5, blood pressure 155/79, pulse 87, respirations 16, and pulse oximetry 100% on room air. HEENT: Normocephalic, atraumatic. Pupils are equal, round, reactive to light and accommodation. Extraocular motions are intact. Patient uses glasses for visual correction. Oropharynx without notable lesion. Tongue is midline. No facial droop. Hearing is intact. Neck supple. Lungs are clear in all [place] of auscultation. Coronary shows an irregularly irregular rate and rhythm with 2 out of 4 bilateral radial pulses. Abdomen is mildly obese with normal bowel sounds in all quadrants. No tenderness noted. The patient with some guarding around left hip, but normal range of motion in bilateral upper and right lower extremity. Neurologically she is alert and oriented to person, place, time and situation. Speech is clear, coherent and appropriate with no dysarthria or fluid or breath control deficits. Memory is intact. Mood is pleasant, minimal anxiousness. Motor shows good to full strength in bilateral upper extremities and right lower extremity. Left lower extremity with some guarding. Light touch and vibration are intact in bilateral upper and lower extremities. Tone is within normal limits in bilateral upper and lower extremities. Knee jerks are 2 out of 4. Ankles 1 out of 4. Toes downgoing on plantar stimulation. Biceps, triceps, brachial radialis are 2 out of 4 in the upper extremities with normal tone as well. LABORATORY DATA: Hemoglobin and hematocrit is 9.2 and 27.4 with normal white count MCV and platelet count. BMP shows mild hyponatremia of 134 with normal potassium, chloride, bicarbonate, BUN and slightly low normal creatinine and normal fasting glucose. X-rays show good alignment in the postoperative period of the fixation and the bones. ASSESSMENT AND PLAN: Diagnoses: 1. Rehabilitation of left hip fracture, complicated by bleed and pulmonary and cardiac affects of that: The patient seems to have responded to the transfusion and is being started in physical and occupational therapy with education and training by rehabilitation nurse and physiatry. Overall, the patient seems to be very motivated and I anticipate will do very well learning self-care and working to increase her strength and mobility. We will however need to be on watch for the secondary affects that she has recently been through with her history of multiple GI bleeds. I anticipate the patient will require 7 days to reach discharge. 2. GI bleed with severe anemia, now moderate: Will go ahead and continue to monitor hemoglobin and hematocrit and blood pressure medication has been consulted regarding this patient. 3. Hyponatremia. This seems to be responding to care by medicine service who will go ahead and continue this. 4. Atrial fibrillation. At this time anticoagulation will consist only of aspirin which is what she has been on for a while. She does have therefore with her atherosclerotic cardiovascular disease and hypertension, risk factors for deep venous thrombosis (DVT) and therefore will be important to keep her hydrated and keep her ambulating as these are the best defenses against clot formation beyond the aspirin. However, will also proceed with thromboembolism deterrents (TEDs) and sequential stockings. Consultation has been sent to orthopedics to continue to monitor and participate in care of this patient as well as medicine service. POST ADMISSION PHYSICIAN EVALUATION: The patient has been consistent with preadmission screening and record review and does have several significant medical problems related to the anemia and GI bleed problems as well as atrial fibrillation and it will be important to watch these. I do however feel the patient is highly motivated and capable of participating in the three hours of therapy per day with a good prognosis for returning home in approximately 7 days. She reports her daughter will be staying with her for a while when she does go home. Time spent on chart review, H and P and documentation is greater than 70 minutes.
[2017-05-12 20:00] VITALS: BP 158/90
[2017-05-12] MEDS: SENOKOT S TAB PO SCH (21:00)
[2017-05-12] MEDS: METOPROLOL TART 12.5 MG PER 1/2 TAB PO SCH (22:03)
[2017-05-12] MEDS: ACETAMINOPHEN TAB 650MG DOSE (2X325MG) PO PRN (22:05)
[2017-05-12 22:35] VITALS: BP 170/90
[2017-05-13] MEDS: NORCO, ANEXSIA 5/325MG TABLET (HYDROcodone/ACETAMINOPHEN) PO PRN ×4 (01:44→19:06)
[2017-05-13 06:00] VITALS: BP 164/80
[2017-05-13 07:53] LABS: BASO # 0.1 10^3/uL (0.0-0.2); BASO % 1.3 % (0.0-1.0); EOS # 0.1 10^3/uL (0.0-0.50); EOS % 3.3 % (0.0-3.0); IMMATURE GRANULOCYTE % 0.5 % (0-0); LYMPH # 0.9 10^3/uL (1.5-4.5); LYMPH % 21.9 % (24.0-44.0); MEAN CORPUSCULAR HEMOGLOBIN 31.1 pg (27.0-33.0); MEAN CORPUSCULAR VOLUME 94.3 fl (80.0-96.0); MONO # 0.4 10^3/uL (0.0-0.8); MONO % 11.1 % (0.0-5.0); NEUTROPHILS # 2.5 10^3/uL (1.8-7.7); NEUTROPHILS % 61.9 % (36.0-66.0); PLATELET COUNT, AUTOMATED 172 10^3/uL (150-450); RED CELL DISTRIBUTION WIDTH 14.7 % (11.5-14.5)
[2017-05-13 08:19] LABS: ALBUMIN 2.6 GM/DL (3.2-5.2); ALBUMIN/GLOBULIN RATIO 0.68 (1.00-1.93); ALKALINE PHOSPHATASE 53 U/L (45-117); ALT/SGPT 15 U/L (12-78); ANION GAP 6 MEQ/L (8-16); AST/SGOT 28 U/L (7-37); BILIRUBIN,TOTAL 0.8 MG/DL (0.2-1.0); BLOOD UREA NITROGEN 11 MG/DL (7-18); CALCIUM LEVEL 8.5 MG/DL (8.8-10.2); CARBON DIOXIDE LEVEL 27 MEQ/L (21-32); CHLORIDE LEVEL 101 MEQ/L (98-107); CREATININE FOR GFR 0.44 MG/DL (0.55-1.02); GLOMERULAR FILTRATION RATE > 60.0 (>45); GLUCOSE, FASTING 96 MG/DL (80-110); SODIUM LEVEL 134 MEQ/L (136-145); TOTAL PROTEIN 6.4 GM/DL (6.4-8.2)
[2017-05-13] MEDS: METOPROLOL TART 12.5 MG PER 1/2 TAB PO SCH ×2 (08:48→20:33)
[2017-05-13] MEDS: SENOKOT S TAB PO SCH ×3 (08:48→20:20)
[2017-05-13] MEDS: ASPIRIN ENTERIC 325 MG TAB PO SCH (08:49)
[2017-05-13] MEDS: PANTOPRAZOLE 40MG TAB (PROTONIX) PO SCH (08:49)
--- NOTE | 2017-05-13 10:38 | CR.PDOC ---
[facility] Consultation Consultation CONSULTATION REPORT FOR: Dr Rascon REASON FOR CONSULTATION: Medical Management DATE OF VISIT: 05/13/17 ATTENDING: Dr. Froy Gar HPI: 71year oldF who was on a step stool 05/07/17 and fell in her basement. She was found to have a left hip fracture, S/P ORIF and nailing as per Orthopedic Surgery 05/09/17. Pt is transferred to the care of ARU, Dr Rascon 05/12/17. Pt states she has some lightheadedness this AM when getting up, however she is now sitting in the chair and states she has not had any recurrent symptoms. Denies any fevers, chills, weakness, fatigue, Headache, Chest Pain, Shortness of breath, cough, palpitations, abdominal pain, N/V/D or changes in bowel or bladder habits. PMHx: Chronic atrial fibrillation, not on anticoagulation related to H/O GI Bleeding with Coumadin and Xarelto. hypertension H/O recurrent GI bleeding. hyponatremia. SOCHX: Resides in: [facility] Marital Status: Tobacco use: denies ETOH: denies Illicit Drugs: Denies ROS: As noted in HPI, otherwise 11pt ROS of systems reviewed and unremarkable. PE: GEN: 71yoF, appears stated age. Well-nourished, well developed. No acute distress. Alert and oriented x 3. Pleasant, interactive. HEENT: Normocephalic, atraumatic. Sclera are nonicteric. Conjunctiva without injection. Nose midline. No facial asymmetry. Moist mucous membranes. Neck supple, trachea midline. CHEST: Regular rate and rhythm, +S1, +S2 LUNGS: Clear to auscultation bilaterally. No wheezes, rales, or rhonchi. Breathing appears symmetric and easy. Patient is speaking in full sentences. No accessory muscle use. ABD: Round, soft, non-tender, non-distended. +Bowel sounds throughout. No rebound or guarding. No costovertebral angle tenderness. EXT: Pulses 2+ bilaterally dorsalis pedis and radial. No lower extremity edema appreciated. SKIN: [place], dry, warm. No rashes. NEURO: No focal deficits appreciated. EKG 05/07/17. ATRIAL FIBRILLATION INCOMPLETE RIGHT BUNDLE BRANCH BLOCK NONSPECIFIC T-WAVE ABNORMALITY NO PRIORS FOR COMPARISON CXR 05/07/17 Cardiomegaly and chronic interstitial changes. No acute cardiopulmonary process appreciated. A&P: 71year oldF who was on a step stool 05/07/17 and fell in her basement. She was found to have a left hip fracture, S/P ORIF and nailing as per Orthopedic Surgery 05/09/17. Pt is transferred to the care of ARU, Dr Rascon 05/12/17 1. Left hip fracture s/p surgical repair as per Orthopedic Surgery. Mgmt as per Orthopedics. ARU as per Dr Rascon. PT/OT as per Dr Rascon. Pain control as per Dr Rascon. DVT prophylaxis ASA 325mg daily. No anticoagulant secondary to severe to gastrointestinal (GI) bleeds secondary to anticoagulation in the past. 2. Chronic Afib. Rate control with Metoprolol 12.5 mg BID. ASA 325mg daily. not on anticoagulation related to H/O GI Bleeding with Coumadin and Xarelto. 3. HTN. Lopressor 12.5 mg BID. No hypotension noted. Will request Orthostatic VS. Monitor. 4. acute blood loss anemia secondary to traumatic fx and surgical repair s/p 2 units PRBC 05/10/17. Monitor Hgb. 5. Hyponatremia Na 134 this AM. Recheck labs in AM. Thank you for your consultation. We will continue to follow along with you. Vital Signs/I&O Vital Signs Date Time Temp Pulse Resp B/P (MAP) Pulse Ox O2 Delivery O2 Flow Rate FiO2 05/13/17 08:48 78 150/62 05/13/17 08:48 18 Room Air 05/13/17 06:00 97.6 100 Laboratory Data Labs 24H Laboratory Tests 2 05/13/17 06:28: Urine Appearance CLEAR, Urine Color STRAW, Urine pH 7.0, Urine Specific [place] 1.005, Urine Protein NEGATIVE, Urine Glucose (UA) NEGATIVE, Urine Ketones NEGATIVE, Urine Urobilinogen 0.2, Urine Bilirubin NEGATIVE, Urine Leukocyte Esterase NEGATIVE, Urine Blood NEGATIVE, Urine Nitrite NEGATIVE, Urine WBC (Auto ) 0, Urine RBC (Auto) 1, Urine Hyaline Casts (Auto) 0, Urine Bacteria (Auto) NEGATIVE, Urine Squamous Epithelial Cells 0, Urine Sperm (Auto) 05/13/17 07:23: Immature Granulocyte % (Auto) 0.5H, White Blood Count 4.0, Red Blood Count 3.15L , Hemoglobin 9.8L, Hematocrit 29.7L, Mean Corpuscular Volume 94.3, Mean Corpuscular Hemoglobin 31.1, Mean Corpuscular Hemoglobin Concent 33.0, Red Cell Distribution Width 14.7H, Platelet Count 172, Neutrophils (%) (Auto) 61.9, Lymphocytes (%) (Auto) 21.9L, Monocytes (%) (Auto) 11.1H, Eosinophils (%) (Auto ) 3.3H, Basophils (%) (Auto) 1.3H, Neutrophils # (Auto) 2.5, Lymphocytes # (Auto ) 0.9L, Monocytes # (Auto) 0.4, Eosinophils # (Auto) 0.1, Basophils # (Auto) 0.1 , Immature Granulocyte # (Auto) 0.0, Nucleated Red Blood Cells % (auto) 0.0, Anion Gap 6L, Glomerular Filtration Rate > 60.0, Blood Urea Nitrogen 11, Creatinine 0.44L, Sodium Level 134L, Potassium Level 5.0, Chloride Level 101, Carbon Dioxide Level 27, Calcium Level 8.5L, Aspartate Amino Transf (AST/SGOT) 28, Alanine Aminotransferase (ALT/SGPT) 15, Alkaline Phosphatase 53, Total Bilirubin 0.8, Total Protein 6.4, Albumin 2.6L, Albumin/Globulin Ratio 0.68L CBC/BMP Laboratory Tests 05/13/17 07:23 Red Blood Count 3.15 L, Mean Corpuscular Volume 94.3, Mean Corpuscular Hemoglobin 31.1, Mean Corpuscular Hemoglobin Concent 33.0, Red Cell Distribution Width 14.7 H, Neutrophils (%) (Auto) 61.9, Lymphocytes (%) (Auto) 21.9 L, Monocytes (%) (Auto) 11.1 H, Eosinophils (%) (Auto) 3.3 H, Basophils (% ) (Auto) 1.3 H, Neutrophils # (Auto) 2.5, Lymphocytes # (Auto) 0.9 L, Monocytes # (Auto) 0.4, Eosinophils # (Auto) 0.1, Basophils # (Auto) 0.1, Calcium Level 8.5 L, Aspartate Amino Transf (AST/SGOT) 28, Alanine Aminotransferase (ALT/SGPT ) 15, Alkaline Phosphatase 53, Total Bilirubin 0.8, Total Protein 6.4, Albumin 2.6 L Allergies Coded Allergies: No Known Drug Allergy (Verified Allergy, Unknown, 05/07/17) Home Medications Scheduled Aspirin (Aspirin) 325 Mg Tab, 1 TAB PO DAILY, #21 X 3 Weeks Lisinopril (Lisinopril) 20 Mg Tab, 20 MG PO DAILY, (Reported) Scheduled PRN Oxycodone/Acetaminophen (Percocet 5-325 mg) 1 Tab Tab, 1-2 TAB PO Q4H PRN for PAIN, #40 Jessica Hansen May 13, 2017 10:38
[2017-05-13 11:00] VITALS: BP 150/95
[2017-05-13 11:05] VITALS: BP 150/88
[2017-05-13 11:10] VITALS: BP 155/90
--- NOTE | 2017-05-13 11:13 | IPNPDOC ---
PM&R Progress Note Consultant Internship Progress Note DATE OF SERVICE: 05/13/17 DATE OF ADMISSION: May 12, 2017 at 12:05 INPATIENT REHABILITATION ADMISSION DAY: #2 SUBJECTIVE:The patient is a 71-year-old white female who lives independently at home in a two story house with basement. On 05/07/2017 she was on a step stool in her basement and fell onto her left hip sustaining a left hip fracture and was brought to [facility] emergency department and found to have an intertrochanteric hip fracture and was evaluated by orthopedics and elected to have open reduction, internal fixation with intramedullary nail and screw fixation on the same day. The patient who has history of severe GI bleed whenever on anticoagulation for her atrial fibrillation, previously on Coumadin and Xarelto having a bleed developed severe blood loss in the postoperative course and desaturated to 79 during a treatment in physical therapy, and marked hypotension. The patient received transfusion times two and since then has had some problems with hypertension. Her respiratory compromise has cleared up. She has been progressing well in physical and occupational therapy and is very motivated to regain independence to return to living in her home alone. Her course also has involved some hyponatremia. Patient reports feeling a little tired today, but no pain or other complaints. She would like a note for Work. I recommend she get release of yesterday's H&P which has the information she needs. ALLERGIES: See Below MEDICATIONS: Reviewed, see below. OBJECTIVE: VITAL SIGNS: Please see below. PHYSICAL EXAMINATION: GENERAL: The patient is a pleasant, alert and well oriented 5 foot 5, 67.6 kg late middle-aged white female who looks a little younger than stated age. Patient is in minimal musculoskeletal distress favoring Left Hip. HEENT: Normocephalic/atraumatic. CARDIOVASCULAR: Irregularly irregular with 2/4 bilateral radial pulses. LUNGS: All almaguer clear to auscultation. ABDOMEN: Obese, benign with normal bowel sounds in all quadrants. NEUROLOGICAL: Alert and oriented 4. Speech clear coherent and appropriate. Affect pleasant and cooperative with a little anxiousness. Sensorimotor is good to full in bilateral upper right lower extremity with some guarding in the left lower extremity. SKIN: Left hip incision is not inflamed without significant drainage. LABORATORY DATA: Reviewed. Please see below. MICROBIOLOGY: Please see below. IMAGING: No new imaging. DVT prophylaxis ordered?: Aspirin with LOUIE hose and sequential compression stockings. ASSESSMENT AND PLAN: 1. Rehabilitation of left hip fracture status post ORIF: Patient starting physical and occupational therapy and expressing her motivation to regain strength and function so she may return home and to working. Patient will be reviewed at team rounds today. Anticipated length of stay is 7 days. REHAB. TEAM ROUNDS: Patient is doing well in initial PT/OT, but needs to gain from Mod. and Min. Assist in many activities and about 40' ambulation to Mod. [place] and able to do multiple stair and ambulate > 100 ' to allow her home access and safety to be at home allow. Anticipated Date of Discharge is 05/19/17. Please see attached therapy notes below. 2. Anemia: Patient who may have had GI bleed in light of her history of multiple GI bleeds is maintaining her hemoglobin and hematocrit at 9.8 and 29.7 today. We will continue to monitor H&H and blood pressure and heart rate. 3. Atrial fibrillation: Patient remains in the arrhythmia but is rate controlled and showing good blood pressure. Will continue with current regimen Medicine cost consultant to assist. 4. Hypoalbuminemia: Relatively good in light of fracture and extensive blood loss and needing transfusion patient currently at 2.6. We will encourage nutrition to focus on adequate calories and protein. TIME SPENT: Chart Review, examination and documentation required greater than 25 minutes. Patient: Jade Matute : 1945 Age/Sex: 71/F Unit#: [id number] Room/Bed: M4147/01 User: Kassidy Ramon PT PT Date: 05/13/17 12:38 Type: PT Evaluation Time In * 10:55 Time Out * 11:55 PT Treatment Time-Minutes * 60 mins Physical Therapy Evaluation * Initial Type of Therapy Provided * Individual Diagnosis * L hip fx/ORIF, GI Bleed Doctor's Order * Evaluation & Treatment Doctor's Order Detail * eval and tx 1.5 hours per day 5 days per week History of Present Illness * Pt states that she was standing on a stool at her home and it buckled under her and she feel. She was beulah to the ER on 05/07/17 and was taken in for surgery. She was also found to have propabale GI bleed with severe anemia s/p transfusion afib wiht repsitory desaturation. Subjective * Pt was supine in her bed upon enter but was willing to participate in therapy at this time. She is a 71 yo female who is pleasent however today states she feels a little dizzy and sick to her stomach. Nursing is aware. Precautions * Fall * PWB Other Precautions * 50% LLE Unit * Acute Inpatient Rehab Prior to Admission Pt Independent with Gait * Yes Prior to Admission Patient Lives * Alone Prior to Admission Pt Lives with Comment * state her daughter is going to come stay with her for a while upon d/c Prior to Admission Other Assist Pt Requires * [employer] Pain Comment * Pt notes pain in her hip. She has been medicated and she does not rate today during the session. She states she is able to tolerate at this time. Upper Extremity ROM Label * Bilateral * ROM Within Normal Limits Within Normal Limits * Upper Extremity ROM Comment See OT eval Lower Extremity ROM Label * Bilateral Hip Knee Ankle * Active or Passive Active * ROM Within Normal Limits Within Functional Limits Tone Within Normal Limits * Yes Upper Extremity Strength Label * Bilateral * Upper Extremity Status Strength Within Funct. Limits * Upper Extremity Strength Comment See OT eval Lower Extremity Strength Label * Right Hip Knee Ankle * Lower Extremity Status Strength 4+/5 * Lower Extremity Status Strength Comment LLE is within functional limits no formally tested due to WBing precautions and pain. Sensation Assessment Label * Bilateral * Sensation Status Within Normal Limits Bathing * Not Tested Dressing * Not Tested Toileting * Not Tested Transfer: Supine to Sit * Contact Guard Assist * Hospital Bed Assist * Bedrail Used Transfer: Sit to Supine * Contact Guard Assist * Hospital Bed Assist * Bedrail Used Transfer: Rolling * Not Tested Transfer: Sit to Stand * Contact Guard Assist Transfer: Stand to Sit * Contact Guard Assist Transfer: Bed to Chair * Contact Guard Assist Transfer: Chair to Bed * Contact Guard Assist Transfer: Toilet/Commode * Contact Guard Assist Transfer Comment * CGA given only for safety today as she reports periods of dizziness today. H&H is within safe limits and she has good color in her checks. No LOB noted during transfers. Ambulation Distance * 83 Feet Ambulation Level of Assist * Contact Guard Assist Assistive Device Used * Walker,Wheeled * Gait Belt Weight BearingStatus * PWB Left * FWB Right Able to Maintain Weight Bearing Status * Yes Gait Deviations * pt was able to complete PWBing of 50% correctly. She was also able to complete additional 10 ft today during session. she uses step to gait and good pressure through her arms. Wheelchair Mobility Level of Assist * Not Tested Stair Skills Required * Yes Level of Assist for Stairs * Not Tested Stairs Comment * Not tested today due to pain, dizziness, and fatigue. A. Roll Left and Right: * 88.Not Attempted B. Sit to Lying: * 04.Sup/Touch Assist C. Lying to Sitting on Side of Bed: * 04.Sup/Touch Assist D. Sit to Stand: * 04.Sup/Touch Assist E. Chair/Aac-xa-Trthf Transfer: * 04.Sup/Touch Assist F. Toilet Transfer: * 04.Sup/Touch Assist G. Car Transfer: * 88.Not Attempted H. Does the patient walk?: * 2. Yes I. Walk 10 Feet: * 04.Sup/Touch Assist J. Walk 50' with Two Turns: * 04.Sup/Touch Assist K. Walk 150 Feet: * 88.Not Attempted L. Walking 10' on uneven surfaces: * 88.Not Attempted M. 1 Step (curb): * 88.Not Attempted N. 4 Steps (with or without railing): * 88.Not Attempted O. 12 Steps (with or without railing): * 88.Not Attempted P. Picking up Object from the Floor (from a standing): * 88.Not Attempted Q. Does the patient use a w/c (other than just transport): * 0. No Sitting: Static * G Sitting: Dynamic * G Standing: Static * G- Standing: Dynamic * G- Functional Balance Comment * sitting observed EOB, standing observed with RW. No LOB noted today at this time. Living Quarters * House Number of Steps Outside Home * 11 Railing: Outside Steps * Left Ramp: Outside * No Equipment Needs for Home * Walker * Grab Bars * Cane * Crutches Hearing * Intact Orientation * Person * Place * Date Memory * Intact Follows Commands * Intact Safety Awareness * Intact Family Support * Intact Family Needs Identified * Education Coordination * Within Normal Limits Home Safety Status * Not Safe Patient Not Safe for Discharge Due to * Pt not able to ambulate 11 steps safely to get into his home at this time. Discharge Recommendations * Home w/services Physical Therapy Evaluation Note * Pt would benefit from Skilled PT at this time to increase ambulation distance, balance, endurance, and increased stafety on the stairs prior to return home. Pt was left supine in bed after session with her call boykin in reach as well as her personal effects. she requests the door shut after the session. Nursing notified. PT Recommendations * OOB for meals. ambulation into the bathroom with A at this time. See Acute In-Patient Rehab POC * Yes PT Interventions * Gait Training * Therapeutic Excercise * Functional Training * Bed Mobility * Balance Activities * Safety/Precautions * HEP * Pt./Family Education * D/C Needs Patient Education Completed * Yes Allergies Coded Allergies: No Known Drug Allergy (Verified Allergy, Unknown, 05/07/17) Vital Signs Vital Signs Date Time Temp Pulse Resp B/P (MAP) Pulse Ox O2 Delivery O2 Flow Rate FiO2 05/13/17 08:48 78 150/62 05/13/17 08:48 18 Room Air 05/13/17 06:00 97.6 100 Laboratory Data CBC/BMP Laboratory Tests 05/13/17 07:23 Red Blood Count 3.15 L, Mean Corpuscular Volume 94.3, Mean Corpuscular Hemoglobin 31.1, Mean Corpuscular Hemoglobin Concent 33.0, Red Cell Distribution Width 14.7 H, Neutrophils (%) (Auto) 61.9, Lymphocytes (%) (Auto) 21.9 L, Monocytes (%) (Auto) 11.1 H, Eosinophils (%) (Auto) 3.3 H, Basophils (% ) (Auto) 1.3 H, Neutrophils # (Auto) 2.5, Lymphocytes # (Auto) 0.9 L, Monocytes # (Auto) 0.4, Eosinophils # (Auto) 0.1, Basophils # (Auto) 0.1, Calcium Level 8.5 L, Aspartate Amino Transf (AST/SGOT) 28, Alanine Aminotransferase (ALT/SGPT ) 15, Alkaline Phosphatase 53, Total Bilirubin 0.8, Total Protein 6.4, Albumin 2.6 L Labs 24H Laboratory Tests 2 05/13/17 06:28: Urine Appearance CLEAR, Urine Color STRAW, Urine pH 7.0, Urine Specific [place] 1.005, Urine Protein NEGATIVE, Urine Glucose (UA) NEGATIVE, Urine Ketones NEGATIVE, Urine Urobilinogen 0.2, Urine Bilirubin NEGATIVE, Urine Leukocyte Esterase NEGATIVE, Urine Blood NEGATIVE, Urine Nitrite NEGATIVE, Urine WBC (Auto ) 0, Urine RBC (Auto) 1, Urine Hyaline Casts (Auto) 0, Urine Bacteria (Auto) NEGATIVE, Urine Squamous Epithelial Cells 0, Urine Sperm (Auto) 05/13/17 07:23: Immature Granulocyte % (Auto) 0.5H, White Blood Count 4.0, Red Blood Count 3.15L , Hemoglobin 9.8L, Hematocrit 29.7L, Mean Corpuscular Volume 94.3, Mean Corpuscular Hemoglobin 31.1, Mean Corpuscular Hemoglobin Concent 33.0, Red Cell Distribution Width 14.7H, Platelet Count 172, Neutrophils (%) (Auto) 61.9, Lymphocytes (%) (Auto) 21.9L, Monocytes (%) (Auto) 11.1H, Eosinophils (%) (Auto ) 3.3H, Basophils (%) (Auto) 1.3H, Neutrophils # (Auto) 2.5, Lymphocytes # (Auto ) 0.9L, Monocytes # (Auto) 0.4, Eosinophils # (Auto) 0.1, Basophils # (Auto) 0.1 , Immature Granulocyte # (Auto) 0.0, Nucleated Red Blood Cells % (auto) 0.0, Anion Gap 6L, Glomerular Filtration Rate > 60.0, Blood Urea Nitrogen 11, Creatinine 0.44L, Sodium Level 134L, Potassium Level 5.0, Chloride Level 101, Carbon Dioxide Level 27, Calcium Level 8.5L, Aspartate Amino Transf (AST/SGOT) 28, Alanine Aminotransferase (ALT/SGPT) 15, Alkaline Phosphatase 53, Total Bilirubin 0.8, Total Protein 6.4, Albumin 2.6L, Albumin/Globulin Ratio 0.68L Current Medications Current Medications Current Medications Acetaminophen (Tylenol Tab) 650 mg Q6HP PRN PO PAIN OR FEVER Last administered on 05/12/17 22:05; Start 05/12/17 at 10:15; Stop 06/11/17 at 10:14 Acetaminophen/ Hydrocodone Bitart ([place], Anexsia 5/325) 1 tab Q4HP PRN PO MODERATE/SEVERE PAIN (PS 5-10) Last administered on 05/13/17 08:48; Start at 10:15; Stop 05/19/17 at 10:14 Aspirin (Ecotrin) 325 mg DAILY PO Last administered on 05/13/17 08:49; Start 05/13/17 at 09:00; Stop 06/12/17 at 08:59 Magnesium Hydroxide (Milk Of Magnesia) 30 ml DAILYPRN PRN PO CONSTIPATION; Start 05/12/17 at 10:15; Stop 06/11/17 at 10:14 Metoprolol Tartrate (Lopressor) 12.5 mg BID PO Last administered on 05/13/17 08:48; Start 05/12/17 at 21:00; Stop 06/11/17 at 20:59 Pantoprazole Sodium (Protonix) 40 mg DAILY PO Last administered on 05/13/17 08:49; Start 05/13/17 at 09:00; Stop 06/12/17 at 08:59 Polyethylene Glycol (Miralax) 1 pkt DAILY PRN PO CONSTIPATION; Start 05/12/17 at 10:15; Stop 06/11/17 at 10:14 Senna/Docusate Sodium (Senokot S) 1 tab BID PO ; Start 05/12/17 at 21:00; Stop 06/11/17 at 20:59 Zolpidem Tartrate (Ambien) 10 mg QHSP PRN PO INSOMNIA; Start 05/12/17 at 10:15 ; Stop 05/19/17 at 10:14 HAI TELLEZ MD May 13, 2017 11:13
[2017-05-13 14:00] VITALS: BP 155/72
[2017-05-13 20:00] VITALS: BP 178/82
[2017-05-13] MEDS: ACETAMINOPHEN TAB 650MG DOSE (2X325MG) PO PRN (20:34)
[2017-05-14] MEDS: NORCO, ANEXSIA 5/325MG TABLET (HYDROcodone/ACETAMINOPHEN) PO PRN ×4 (00:37→20:26)
[2017-05-14 06:00] VITALS: BP 190/78
[2017-05-14 06:52] VITALS: BP 180/72
[2017-05-14 08:15] VITALS: BP 180/92
[2017-05-14] MEDS ORDERED: traZODone 100 MG TAB PO PRN (08:15)
[2017-05-14] MEDS: ASPIRIN ENTERIC 325 MG TAB PO SCH (08:16)
[2017-05-14] MEDS: PANTOPRAZOLE 40MG TAB (PROTONIX) PO SCH (08:17)
[2017-05-14] MEDS: ACETAMINOPHEN TAB 650MG DOSE (2X325MG) PO PRN (08:17)
[2017-05-14] MEDS: METOPROLOL TART 12.5 MG PER 1/2 TAB PO SCH (08:17)
[2017-05-14] MEDS: SENOKOT S TAB PO SCH ×2 (08:18→20:25)
[2017-05-14] MEDS ORDERED: METOPROLOL TART 25 MG TABLET PO ONE (09:00)
[2017-05-14] MEDS ORDERED: METOPROLOL TART 12.5 MG PER 1/2 TAB PO ONE (09:00)
[2017-05-14] MEDS: traMADol 50 MG TAB PO PRN (09:20)
--- NOTE | 2017-05-14 11:27 | IPNPDOC ---
PM&R Progress Note Director Regulatory Agency Progress Note DATE OF SERVICE: 05/14/17 DATE OF ADMISSION: May 12, 2017 at 12:05 INPATIENT REHABILITATION ADMISSION DAY: #3 SUBJECTIVE:The patient is a 71-year-old white female who lives independently at home in a two story house with basement. On 05/07/2017 she was on a step stool in her basement and fell onto her left hip sustaining a left hip fracture and was brought to [facility] emergency department and found to have an intertrochanteric hip fracture and was evaluated by orthopedics and elected to have open reduction, internal fixation with intramedullary nail and screw fixation on the same day. The patient who has history of severe GI bleed whenever on anticoagulation for her atrial fibrillation, previously on Coumadin and Xarelto having a bleed developed severe blood loss in the postoperative course and desaturated to 79 during a treatment in physical therapy, and marked hypotension. The patient received transfusion times two and since then has had some problems with hypertension. Her respiratory compromise has cleared up. She has been progressing well in physical and occupational therapy and is very motivated to regain independence to return to living in her home alone. Her course also has involved some hyponatremia. Patient reports feeling a little tired today with a frontal headache not fully relieved by icing it. ALLERGIES: See Below MEDICATIONS: Reviewed, see below. OBJECTIVE: VITAL SIGNS: Please see below. PHYSICAL EXAMINATION: GENERAL: The patient is a pleasant, alert and well oriented 5 foot 5, 67.6 kg late middle-aged white female who looks a little younger than stated age. Patient is in minimal musculoskeletal distress favoring Left Hip. HEENT: Normocephalic/atraumatic. CARDIOVASCULAR: Irregularly irregular with 2/4 bilateral radial pulses. LUNGS: All almaguer clear to auscultation. ABDOMEN: Obese, benign with normal bowel sounds in all quadrants. NEUROLOGICAL: Alert and oriented 4. Speech clear coherent and appropriate. Affect pleasant and cooperative with a little anxiousness. Sensorimotor is good to full in bilateral upper right lower extremity with some guarding in the left lower extremity. SKIN: Left hip incision is not inflamed without significant drainage. LABORATORY DATA: Reviewed. Please see below. MICROBIOLOGY: Please see below. IMAGING: No new imaging. DVT prophylaxis ordered?: Aspirin with LOUIE hose and sequential compression stockings. ASSESSMENT AND PLAN: 1. Rehabilitation of left hip fracture status post ORIF: Patient starting physical and occupational therapy and expressing her motivation to regain strength and function so she may return home and to working. Patient making very good progress in PT/OT ans should meet discharge to home alone goals next week. For pain, I will add Tramadol 50 mg Q4Hrs PRN. Anticipated Date of Discharge is 05/19/17. Please see attached therapy notes below. 2. Anemia: Patient who may have had GI bleed in light of her history of multiple GI bleeds is maintaining her hemoglobin and hematocrit at 9.8 and 29.7 yesterday. We will continue to monitor H&H and blood pressure and heart rate. 3. Atrial fibrillation: Patient remains in the arrhythmia but is rate controlled and showing good blood pressure. Will continue with current regimen Medicine process improvement consultant to assist. 4. Hypoalbuminemia: Relatively good in light of fracture and extensive blood loss and needing transfusion patient currently at 2.6. We will encourage nutrition to focus on adequate calories and protein. 5. Hypertension: Patient with Heart Rate running 72 to 95 since admission and recent SBP up to 190 and frontal headache this morning. I have discussed the patient with Ms. Hansen and I will increase Metoprolol Tartrate to 25 mg BID, but will give one time 12.5 mg dose this morning to offset only getting 12.5 mg this morning and clearly is not beta blocked. If this is not successful, we will look to restart Lisinopril that patient was on as an outpatient. Headache relieved after Lopressor 12.5 and Tramadol 50 this morning. TIME SPENT: Chart Review, examination and documentation required greater than 25 minutes. Patient: Jade Matute : 1945 Age/Sex: 71/F Unit#: [id number] Room/Bed: M4147/01 User: Radha Minor PT PT Date: 05/13/17 15:07 Type: PT Progress Note Time In * 14:02 Time Out * 14:32 PT Treatment Time-Minutes * 30 mins Type of Therapy Provided * Individual Precautions * Fall * PWB Other Precautions * 50% Lt LE Unit * Acute Inpatient Rehab Pain Start of Session * 6 Pain End of Session * 6 Pain Comment * Patient reports pain in Lt hip with activity, reports that she has had medication already. Subjective * Patient is agreeable to PT session. Patient was supine resting in bed prior to session. Cognition * Within Normal Limits Cognition Comments * A&Ox3 Supine to Sit * Contact Guard Assist Sit to Supine * Not Tested Rolling * Not Tested Bed Mobility Notes * Supported Lt LE however patient demonstrates with no assistance needed. Sit to Stand * Contact Guard Assist Stand to Sit * Contact Guard Assist Bed to Chair * Not Tested Chair to Bed * Not Tested Toilet/Commode * Contact Guard Assist Transfer Training Notes * CGA with transfers to ensure safety. No LOB throughout, utilizes RW for assistance. Proper hand placement demonstrated. Sit-Static * G Sit-Dynamic * G Stand-Static * G- Stand-Dynamic * F+ Balance Training Note * Sitting balance assessed sitting at EOB, standing balance assessed standing at RW. Ambulation Distance * 28 Feet Ambulation Level of Assist * Contact Guard Assist Weight BearingStatus * PWB Left * FWB Right Able to Maintain Weight Bearing Status * Yes Gait Training Note * Patient ambulated 28ft x1, 20 ft x1 with RW. PWB Lt LE. Patient demonstrates decreased stride length and decreased isidoro with ambulation. Patient is able to maintain WB status and has no LOB with ambulation. Wheelchair Mobility Level of Assist * Not Tested Level of Assist for Stairs * Not Tested Stair Training Note * Not appropriate yet. A. Roll Left and Right: * 88.Not Attempted B. Sit to Lying: * 88.Not Attempted C. Lying to Sitting on Side of Bed: * 04.Sup/Touch Assist D. Sit to Stand: * 04.Sup/Touch Assist E. Chair/Txd-zp-Xtrye Transfer: * 04.Sup/Touch Assist F. Toilet Transfer: * 04.Sup/Touch Assist G. Car Transfer: * 88.Not Attempted H. Does the patient walk?: * 2. Yes I. Walk 10 Feet: * 04.Sup/Touch Assist Walk 10 Feet Comments: * See gait notes J. Walk 50' with Two Turns: * 88.Not Attempted K. Walk 150 Feet: * 88.Not Attempted L. Walking 10' on uneven surfaces: * 88.Not Attempted M. 1 Step (curb): * 88.Not Attempted N. 4 Steps (with or without railing): * 88.Not Attempted O. 12 Steps (with or without railing): * 88.Not Attempted P. Picking up Object from the Floor (from a standing): * 88.Not Attempted Q. Does the patient use a w/c (other than just transport): * 0. No Lower Extremity Exercised * Bilateral Sitting Exercises * Long Arc Quads * Marching * Toe Raises * Heel Raises Other Sitting Exercises * painfree ROM for all activity Number of Reps Sitting * 10-15 Reps Other Standing Exercises * Sit to stands x5 reps, proper hand placement demonstrated, patient is able to maintain WB status throughout. PT Interventions * Gait Training * Therapeutic Excercise * Functional Training * Bed Mobility * Balance Activities * Safety/Precautions * HEP * Pt./Family Education * D/C Needs PT Progress Note * Patient is progressing well. Patient maintains WB status well throughout session. Does report and demonstrate fatigue with activity this session. Patient demonstrates all activity with no immediate adverse effects. Patient was seated in recliner with personal belongings and call boykin within reach following PT session. Discharge Recommendations * Home w/services Safe for discharge at this time * No Allergies Coded Allergies: No Known Drug Allergy (Verified Allergy, Unknown, 05/07/17) Vital Signs Vital Signs Date Time Temp Pulse Resp B/P (MAP) Pulse Ox O2 Delivery O2 Flow Rate FiO2 05/14/17 09:20 18 05/14/17 08:17 80 180/92 05/14/17 06:00 98.3 100 Room Air Current Medications Current Medications Current Medications Acetaminophen (Tylenol Tab) 650 mg Q6HP PRN PO PAIN OR FEVER Last administered on 05/14/17 08:17; Start 05/12/17 at 10:15; Stop 06/11/17 at 10:14 Acetaminophen/ Hydrocodone Bitart ([place], Anexsia 5/325) 1 tab Q4HP PRN PO MODERATE/SEVERE PAIN (PS 5-10) Last administered on 05/14/17 05:37; Start at 10:15; Stop 05/19/17 at 10:14 Aspirin (Ecotrin) 325 mg DAILY PO Last administered on 05/14/17 08:16; Start 05/13/17 at 09:00; Stop 06/12/17 at 08:59 Magnesium Hydroxide (Milk Of Magnesia) 30 ml DAILYPRN PRN PO CONSTIPATION; Start 05/12/17 at 10:15; Stop 06/11/17 at 10:14 Metoprolol Tartrate (Lopressor) 12.5 mg BID PO Last administered on 05/14/17 08:17; Start 05/12/17 at 21:00; Stop 05/14/17 at 08:43; Status DC Metoprolol Tartrate (Lopressor) 25 mg BID PO ; Start 05/14/17 at 21:00; Stop at 20:59 Pantoprazole Sodium (Protonix) 40 mg DAILY PO Last administered on 05/14/17 08 :17; Start 05/13/17 at 09:00; Stop 06/12/17 at 08:59 Polyethylene Glycol (Miralax) 1 pkt DAILY PRN PO CONSTIPATION; Start 05/12/17 at 10:15; Stop 06/11/17 at 10:14 Senna/Docusate Sodium (Senokot S) 1 tab BID PO ; Start 05/12/17 at 21:00; Stop 06/11/17 at 20:59 Tramadol HCl (Ul[place]am) 50 mg Q4HP PRN PO PAIN Last administered on 05/14/17 09: 20; Start 05/14/17 at 08:45; Stop 05/21/17 at 08:44 Trazodone HCl (Desyrel) 100 mg QHSP PRN PO INSOMNIA; Start 05/14/17 at 08:15; Stop 06/13/17 at 08:14 Zolpidem Tartrate (Ambien) 10 mg QHSP PRN PO INSOMNIA; Start 05/12/17 at 10:15 ; Stop 05/19/17 at 10:14; Status Cancel HAI TELLEZ MD May 14, 2017 11:27
--- NOTE | 2017-05-14 12:59 | IPNPDOC ---
Date Seen The patient was seen on 05/14/17. Progress Note HPI: 71year oldF who was on a step stool 05/07/17 and fell in her basement. She was found to have a left hip fracture, S/P ORIF and nailing as per Orthopedic Surgery 05/09/17. Pt is transferred to the care of [facility], Dr Rascon 05/12/17. Pt states she had a SCHERER this AM however she is now sitting in the chair and states her SCHERER has resolved. Denies any fevers, chills, weakness, fatigue, Chest Pain, Shortness of breath, cough, palpitations, abdominal pain, N/V/D or changes in bowel or bladder habits. PMHx: Chronic atrial fibrillation, not on anticoagulation related to H/O GI Bleeding with Coumadin and Xarelto. hypertension H/O recurrent GI bleeding. hyponatremia. PE: GEN: 71yoF, appears stated age. Well-nourished, well developed. No acute distress. Alert and oriented x 3. Pleasant, interactive. HEENT: Normocephalic, atraumatic. Sclera are nonicteric. Conjunctiva without injection. Nose midline. No facial asymmetry. Moist mucous membranes. Neck supple, trachea midline. CHEST: Regular rate and rhythm, +S1, +S2 LUNGS: Clear to auscultation bilaterally. No wheezes, rales, or rhonchi. Breathing appears symmetric and easy. Patient is speaking in full sentences. No accessory muscle use. ABD: Round, soft, non-tender, non-distended. +Bowel sounds throughout. No rebound or guarding. No costovertebral angle tenderness. EXT: Pulses 2+ bilaterally dorsalis pedis and radial. No lower extremity edema appreciated. SKIN: [place], dry, warm. No rashes. NEURO: No focal deficits appreciated. EKG 05/07/17. ATRIAL FIBRILLATION INCOMPLETE RIGHT BUNDLE BRANCH BLOCK NONSPECIFIC T-WAVE ABNORMALITY NO PRIORS FOR COMPARISON CXR 05/07/17 Cardiomegaly and chronic interstitial changes. No acute cardiopulmonary process appreciated. A&P: 71year oldF who was on a step stool 05/07/17 and fell in her basement. She was found to have a left hip fracture, S/P ORIF and nailing as per Orthopedic Surgery 05/09/17. Pt is transferred to the care of [facility], Dr Rascon 05/12/17 1. Left hip fracture s/p surgical repair as per Orthopedic Surgery. Mgmt as per Orthopedics. ARU as per Dr Rascon. PT/OT as per Dr Rascon. Pain control as per Dr Rascon. DVT prophylaxis ASA 325mg daily. No anticoagulant secondary to severe to gastrointestinal (GI) bleeds secondary to anticoagulation in the past. 2. Chronic Afib. Rate control with Metoprolol 12.5 mg BID, HR 70s-92 ASA 325mg daily. not on anticoagulation related to H/O GI Bleeding with Coumadin and Xarelto. 3. HTN. BP control suboptimal, Lopressor increased to 25 mg BID today. Consider adding back Lisinopril if needed. Monitor. 4. acute blood loss anemia secondary to traumatic fx and surgical repair s/p 2 units PRBC 05/10/17. Monitor Hgb. 5. Hyponatremia Na 134 05/13. Monitor. VS, I&O, 24H, Fishbone Vital Signs/I&O Vital Signs Date Time Temp Pulse Resp B/P (MAP) Pulse Ox O2 Delivery O2 Flow Rate FiO2 05/14/17 09:50 18 05/14/17 08:17 80 180/92 05/14/17 06:00 98.3 100 Room Air I&O- Last 24 Hours up to 6 AM 05/15/17 06:00 Intake Total 1080 ml Balance 1080 ml Jessica Hansen May 14, 2017 12:59
[2017-05-14 14:00] VITALS: BP 142/78
[2017-05-14 20:00] VITALS: BP 164/82
[2017-05-14] MEDS: METOPROLOL TART 25 MG TABLET PO SCH (20:27)
[2017-05-15] MEDS: traMADol 50 MG TAB PO PRN ×3 (00:13→18:38)
[2017-05-15] MEDS: NORCO, ANEXSIA 5/325MG TABLET (HYDROcodone/ACETAMINOPHEN) PO PRN ×3 (05:59→21:12)
[2017-05-15 06:00] VITALS: BP 168/86
[2017-05-15 06:44] LABS: MEAN CORPUSCULAR HGB CONC 34.2 g/dl (32.0-36.5); MEAN CORPUSCULAR VOLUME 93.7 fl (80.0-96.0); PLATELET COUNT, AUTOMATED 211 10^3/uL (150-450); RED CELL DISTRIBUTION WIDTH 14.3 % (11.5-14.5); WHITE BLOOD COUNT 3.9 10^3/uL (4.0-10.0)
[2017-05-15] MEDS: ASPIRIN ENTERIC 325 MG TAB PO SCH (08:45)
[2017-05-15] MEDS: PANTOPRAZOLE 40MG TAB (PROTONIX) PO SCH (08:45)
[2017-05-15] MEDS: METOPROLOL TART 25 MG TABLET PO SCH ×2 (08:45→21:13)
[2017-05-15] MEDS: SENOKOT S TAB PO SCH ×2 (08:47→21:00)
[2017-05-15 14:00] VITALS: BP 118/70
[2017-05-15 20:00] VITALS: BP 162/84
[2017-05-16] MEDS: traMADol 50 MG TAB PO PRN ×3 (02:33→12:56)
[2017-05-16 06:34] LABS: MEAN CORPUSCULAR HEMOGLOBIN 31.4 pg (27.0-33.0); MEAN CORPUSCULAR HGB CONC 33.2 g/dl (32.0-36.5); MEAN CORPUSCULAR VOLUME 94.4 fl (80.0-96.0); PLATELET COUNT, AUTOMATED 251 10^3/uL (150-450); RED CELL DISTRIBUTION WIDTH 14.3 % (11.5-14.5)
[2017-05-16] MEDS: ASPIRIN ENTERIC 325 MG TAB PO SCH (08:51)
[2017-05-16] MEDS: METOPROLOL TART 25 MG TABLET PO SCH ×2 (08:52→20:00)
[2017-05-16] MEDS: SENOKOT S TAB PO SCH ×2 (08:52→19:38)
[2017-05-16] MEDS: PANTOPRAZOLE 40MG TAB (PROTONIX) PO SCH (08:52)
[2017-05-16 14:00] VITALS: BP 138/80
[2017-05-16] MEDS: NORCO, ANEXSIA 5/325MG TABLET (HYDROcodone/ACETAMINOPHEN) PO PRN (19:57)
[2017-05-16 20:00] VITALS: BP 142/84
[2017-05-17] MEDS: traMADol 50 MG TAB PO PRN ×2 (00:58→11:11)
[2017-05-17 06:00] VITALS: BP 140/90
[2017-05-17] MEDS: NORCO, ANEXSIA 5/325MG TABLET (HYDROcodone/ACETAMINOPHEN) PO PRN ×2 (06:36→20:21)
[2017-05-17 07:57] LABS: MEAN CORPUSCULAR HEMOGLOBIN 31.5 pg (27.0-33.0); MEAN CORPUSCULAR HGB CONC 33.6 g/dl (32.0-36.5); PLATELET COUNT, AUTOMATED 250 10^3/uL (150-450); RED CELL DISTRIBUTION WIDTH 14.2 % (11.5-14.5); WHITE BLOOD COUNT 4.2 10^3/uL (4.0-10.0)
[2017-05-17 08:16] LABS: ALBUMIN/GLOBULIN RATIO 0.91 (1.00-1.93); ALKALINE PHOSPHATASE 71 U/L (45-117); ALT/SGPT 17 U/L (12-78); ANION GAP 6 MEQ/L (8-16); AST/SGOT 20 U/L (7-37); BILIRUBIN,TOTAL 0.9 MG/DL (0.2-1.0); BLOOD UREA NITROGEN 11 MG/DL (7-18); CALCIUM LEVEL 8.6 MG/DL (8.8-10.2); CARBON DIOXIDE LEVEL 29 MEQ/L (21-32); CHLORIDE LEVEL 100 MEQ/L (98-107); CREATININE FOR GFR 0.56 MG/DL (0.55-1.02); GLOMERULAR FILTRATION RATE > 60.0 (>45); GLUCOSE, FASTING 94 MG/DL (80-110); POTASSIUM SERUM 4.5 MEQ/L (3.5-5.1); SODIUM LEVEL 135 MEQ/L (136-145); TOTAL PROTEIN 6.3 GM/DL (6.4-8.2)
[2017-05-17] MEDS: SENOKOT S TAB PO SCH ×2 (08:18→20:23)
[2017-05-17] MEDS: PANTOPRAZOLE 40MG TAB (PROTONIX) PO SCH (08:18)
[2017-05-17] MEDS: ASPIRIN ENTERIC 325 MG TAB PO SCH (08:18)
[2017-05-17] MEDS: METOPROLOL TART 25 MG TABLET PO SCH ×2 (08:18→20:20)
--- NOTE | 2017-05-17 11:31 | IPNPDOC ---
Date Seen The patient was seen on 05/17/17. Progress Note HPI: 71year oldF who was on a step stool 05/07/17 and fell in her basement. She was found to have a left hip fracture, S/P ORIF and nailing as per Orthopedic Surgery 05/09/17. Pt is transferred to the care of [facility], Dr Rascon 05/12/17. Pt is sitting in blanca, states she is having some pain following PT. Denies any fevers, chills, SCHERER, weakness, fatigue, Chest Pain, Shortness of breath, cough, palpitations, abdominal pain, N/V/D or changes in bowel or bladder habits. PMHx: Chronic atrial fibrillation, not on anticoagulation related to H/O GI Bleeding with Coumadin and Xarelto. hypertension H/O recurrent GI bleeding. hyponatremia. PE: GEN: 71yoF, appears stated age. Well-nourished, well developed. No acute distress. Alert and oriented x 3. Pleasant, interactive. HEENT: Normocephalic, atraumatic. Sclera are nonicteric. Conjunctiva without injection. Nose midline. No facial asymmetry. Moist mucous membranes. Neck supple, trachea midline. CHEST: Regular rate and rhythm, +S1, +S2 LUNGS: Clear to auscultation bilaterally. No wheezes, rales, or rhonchi. Breathing appears symmetric and easy. Patient is speaking in full sentences. No accessory muscle use. ABD: Round, soft, non-tender, non-distended. +Bowel sounds throughout. No rebound or guarding. No costovertebral angle tenderness. EXT: Pulses 2+ bilaterally dorsalis pedis and radial. No lower extremity edema appreciated. SKIN: [place], dry, warm. No rashes. NEURO: No focal deficits appreciated. EKG 05/07/17. ATRIAL FIBRILLATION INCOMPLETE RIGHT BUNDLE BRANCH BLOCK NONSPECIFIC T-WAVE ABNORMALITY NO PRIORS FOR COMPARISON CXR 05/07/17 Cardiomegaly and chronic interstitial changes. No acute cardiopulmonary process appreciated. A&P: 71year oldF who was on a step stool 05/07/17 and fell in her basement. She was found to have a left hip fracture, S/P ORIF and nailing as per Orthopedic Surgery 05/09/17. Pt is transferred to the care of [facility], Dr Rascon 05/12/17 1. Left hip fracture s/p surgical repair as per Orthopedic Surgery. Mgmt as per Orthopedics. ARU as per Dr Rascon. PT/OT as per Dr Rascon. Pain control as per Dr Rascon. DVT prophylaxis ASA 325mg daily. No anticoagulant secondary to severe to gastrointestinal (GI) bleeds secondary to anticoagulation in the past. 2. Chronic Afib. Rate control with Metoprolol 12.5 mg BID, HR 70s-92 ASA 325mg daily. not on anticoagulation related to H/O GI Bleeding with Coumadin and Xarelto. 3. HTN. BP 134-140/70-90 Lopressor 25mg BID. HR 56-61. Consider adding back Lisinopril if needed. Monitor. 4. acute blood loss anemia secondary to traumatic fx and surgical repair s/p 2 units PRBC 05/10/17. Monitor Hgb. 5. Hyponatremia Na 135. Monitor. VS, I&O, 24H, Fishbone Vital Signs/I&O Vital Signs Date Time Temp Pulse Resp B/P (MAP) Pulse Ox O2 Delivery O2 Flow Rate FiO2 05/17/17 11:11 16 05/17/17 08:18 61 140/90 05/17/17 07:11 99 Room Air 05/17/17 06:00 98.4 I&O- Last 24 Hours up to 6 AM 05/18/17 06:00 Intake Total 360 ml Balance 360 ml Laboratory Data 24H LABS Laboratory Tests 2 05/17/17 07:38: Nucleated Red Blood Cells % (auto) 0.0, Anion Gap 6L, Glomerular Filtration Rate > 60.0, Blood Urea Nitrogen 11, Creatinine 0.56, Sodium Level 135L, Potassium Level 4.5, Chloride Level 100, Carbon Dioxide Level 29, Calcium Level 8.6L, Aspartate Amino Transf (AST/SGOT) 20, Alanine Aminotransferase (ALT/SGPT) 17, Alkaline Phosphatase 71, Total Bilirubin 0.9, Total Protein 6.3L, Albumin 3.0L, Albumin/Globulin Ratio 0.91L CBC/BMP Laboratory Tests 05/17/17 07:38 Red Blood Count 3.17 L, Mean Corpuscular Volume 94.0, Mean Corpuscular Hemoglobin 31.5, Mean Corpuscular Hemoglobin Concent 33.6, Red Cell Distribution Width 14.2, Calcium Level 8.6 L, Aspartate Amino Transf (AST/SGOT) 20, Alanine Aminotransferase (ALT/SGPT) 17, Alkaline Phosphatase 71, Total Bilirubin 0.9, Total Protein 6.3 L, Albumin 3.0 L Jessica Hansen May 17, 2017 11:31
[2017-05-17 14:00] VITALS: BP 163/91
--- NOTE | 2017-05-17 15:14 | IPNPDOC ---
PM&R Progress Note Forensic Examiner Progress Note DATE OF SERVICE: 05/17/17 DATE OF ADMISSION: May 12, 2017 at 12:05 INPATIENT REHABILITATION ADMISSION DAY: #6 SUBJECTIVE:The patient is a 71-year-old white female who lives independently at home in a two story house with basement. On 05/07/2017 she was on a step stool in her basement and fell onto her left hip sustaining a left hip fracture and was brought to [facility] emergency department and found to have an intertrochanteric hip fracture and was evaluated by orthopedics and elected to have open reduction, internal fixation with intramedullary nail and screw fixation on the same day. The patient who has history of severe GI bleed whenever on anticoagulation for her atrial fibrillation, previously on Coumadin and Xarelto having a bleed developed severe blood loss in the postoperative course and desaturated to 79 during a treatment in physical therapy, and marked hypotension. The patient received transfusion times two and since then has had some problems with hypertension. Her respiratory compromise has cleared up. She has been progressing well in physical and occupational therapy and is very motivated to regain independence to return to living in her home alone. Her course also has involved some hyponatremia. Patient feeling good, but concerned about being ready to return home. Pain control is adequate. ALLERGIES: See Below MEDICATIONS: Reviewed, see below. OBJECTIVE: VITAL SIGNS: Please see below. PHYSICAL EXAMINATION: GENERAL: The patient is a pleasant, alert and well oriented 5 foot 5, 67.6 kg late middle-aged white female who looks a little younger than stated age. Patient is in minimal musculoskeletal distress favoring Left Hip. HEENT: Normocephalic/atraumatic. CARDIOVASCULAR: Irregularly irregular with 2/4 bilateral radial pulses. LUNGS: All [place] clear to auscultation. ABDOMEN: Obese, benign with normal bowel sounds in all quadrants. NEUROLOGICAL: Alert and oriented 4. Speech clear coherent and appropriate. Affect pleasant and cooperative with a little anxiousness. Sensorimotor is good to full in bilateral upper right lower extremity with some guarding in the left lower extremity. SKIN: Left hip incision is not inflamed without significant drainage. LABORATORY DATA: Reviewed. Please see below. MICROBIOLOGY: Please see below. IMAGING: No new imaging. DVT prophylaxis ordered?: Aspirin with LOUIE hose and sequential compression stockings. ASSESSMENT AND PLAN: 1. Rehabilitation of left hip fracture status post ORIF: Patient starting physical and occupational therapy and expressing her motivation to regain strength and function so she may return home and to working. Patient making very good progress in PT/OT ans should meet discharge to home alone goals next week. For pain, I will add Tramadol 50 mg Q4Hrs PRN. 2. Anemia: Patient who may have had GI bleed in light of her history of multiple GI bleeds is maintaining her hemoglobin and hematocrit at 9.8 and 29.7 yesterday. We will continue to monitor H&H and blood pressure and heart rate. 3. Atrial fibrillation: Patient remains in the arrhythmia but is rate controlled and showing good blood pressure. Will continue with current regimen Medicine intelligence consultant to assist. 4. Hypoalbuminemia: Relatively good in light of fracture and extensive blood loss and needing transfusion patient currently at 2.6. We will encourage nutrition to focus on adequate calories and protein. 5. Hypertension: Patient with Heart Rate running 72 to 95 since admission and recent SBP up to 190 and frontal headache this morning. I have discussed the patient with Ms. Hansen and I will increase Metoprolol Tartrate to 25 mg BID, but will give one time 12.5 mg dose this morning to offset only getting 12.5 mg this morning and clearly is not beta blocked. If this is not successful, we will look to restart Lisinopril that patient was on as an outpatient. Headache relieved after Lopressor 12.5 and Tramadol 50 this morning. REHAB. TEAM ROUNDS: Patient is doing well and up to 6 stairs with SBA, and >150 ambulation with FWW. Her ADL's are CGA to Mod. Independent. She will need to be Mod. Independent for ADL's and Mobility including 12 stairs to return home. Stairs to her home are inside with just a step up into the entry way. She will be needing FWW, Tub Transfer Bench and Commode. Anticipated Date of Discharge is 05/19/17. Please see attached therapy notes below. TIME SPENT: Chart Review, examination and documentation required greater than 25 minutes. Patient: Jade Matute : 1945 Age/Sex: 71/F Unit#: [id number] Room/Bed: M4147/01 User: Aysha Mario OT OT Date: 05/17/17 12:50 Type: OT Progress Time In * 08:15 Time Out * 09:50 OT Treatment Time-Minutes * 95 mins Type of Therapy Provided * Individual Precautions * Fall * PWB Unit * Acute Inpatient Rehab Pain Comment * No formal c/o pain Subjective * Pt supine upon OT arrival, agreeable to tx. Cognition * Within Normal Limits Cognition Comments * A&Ox3 Supine to Sit * Modified Independant Sit to Supine * Modified Independent Rolling * Not Tested Bed Mobility Notes * Pt performed sit<>supine with mod I with HOB elevated using bed rail. Sit to Stand * Modified Independent Stand to Sit * Modified Independent Bed to Chair * Modified Independent Toilet/Commode * Modified Independent Functional Transfer Notes: * Pt ambulated bedside>bathroom, bathroom>therapy gym with RW and performed all functional transfers with mod I. Pt with good carry over with safety techniques. Bathing * Modified Independent Dressing-Upper Body * Independent Dressing-Lower Body * Standby Assist Grooming * Independent Toileting * Modified Independent Eating * Independent ADL Training Note * Pt ambulated to bathroom and completed toileting with mod I. Pt then transferred to chair at sink and completed sponge bathing with mod I. UB dressing- independently, as pt ambulated in room to gather clothing prior to toileting. LB dressing- pt requires assist to don/doff TEDs, but able to doff underwear/pants, and don clean pants, underwear, and socks using AE. Grooming completed independently at sink. A. Eating (include only those with PO intake): * 06.Independent Eating Comments: * See ADL note. B. Oral Hygiene (includes gums in edentulous pts): * 06.Independent Oral Hygiene Comments: * See ADL note C. Toileting Hygiene (not transfers): * 06.Independent Toileting Hygiene Comments: * See ADL note. E. Shower/Bathe Self (not transfers, can be sponge bath): * 06.Independent Shower/Bathe Self Comments: * See ADL note F. Upper Body Dressing (includes bra, not hospital gown): * 06.Independent Upper Body Dressing Comments: * See ADL note G. Lower Body Dressing (includes briefs and knee braces): * 06.Independent Lower Body Dressing Comments: * See ADL note H. Putting on/taking off footwear (includes TEDS and AFO): * 05.Setup/clean up Asst Putting on/taking off footwear Comments: * See ADl note Sit-Static * G Sit-Dynamic * G Stand-Static * G Stand-Dynamic * G- Balance Training Note * Sitting balance assessed sitting at EOB, standing balance assessed standing at RW. OT Intervention Note * See ADL note above. Following ADL, pt ambulated to gym with mod I with increased time to complete. In gym, pt completed BUE ergometer x8:00 with moderate resistance to increase strength and endurance for ADL/IADL routines. Pt declined laundry task this date, stating she will have assistance for laundry at home, as it is located in the basement. Pt edu re: tips for making laundry more simple/safe using RW and adaptive techniques. Pt then returned to room and remained seated in chair at bedside. All needs met, call light in reach. OT Goal Note * Continue with OT plan of care. Discharge Recommendations * Home w/services Safe for discharge at this time * No Patient: Jade Matute : 1945 Age/Sex: 71/F Unit#: [id number] Room/Bed: [place] [address] User: Sylwia Moore PT PT Date: 05/16/17 12:29 Type: PT Progress Note Time In * 10:30 Time Out * 11:30 PT Treatment Time-Minutes * 60 mins Type of Therapy Provided * Individual Precautions * Fall * PWB Other Precautions * 50% WB Lt LE Unit * Acute Inpatient Rehab Pain Start of Session * 7 Pain End of Session * 7 Pain Comment * Pt states she is painful at this time as she has had a "busy morning" Subjective * Pt agreeable to PT treatment though needs encouragement to perform therex to the best of her ability. Cognition * Within Normal Limits Cognition Comments * A&Ox3 Supine to Sit * Modified Independant Sit to Supine * Modified Independent Rolling * Not Tested Bed Mobility Notes * Pt performed supine<>sit this date with mod I and was able to scoot to HOB using UEs while following wb precautions for LLE. Sit to Stand * Standby Assist Stand to Sit * Standby Assist Bed to Chair * Standby Assist Chair to Bed * Not Tested Toilet/Commode * Standby Assist Transfer Training Notes * SBA for transfers, no LOB throughout, demonstrates proper use of RW. Sit-Static * G Sit-Dynamic * G Stand-Static * G Stand-Dynamic * G- Balance Training Note * Sitting balance assessed sitting at EOB, standing balance assessed standing at RW. Ambulation Distance * 80 Feet Ambulation Level of Assist * Standby Assist Assistive Device Used * Rolling Walker * Gait Belt Weight BearingStatus * PWB Left * FWB Right Able to Maintain Weight Bearing Status * Yes Gait Training Note * Patient ambulated from bed to bathroom and into the hallway for 80 ft following. Patient is able to maintain WB status throughout. Wheelchair Mobility Level of Assist * Not Tested Level of Assist for Stairs * Not Tested Stair Training Note * Not attempted this date. A. Roll Left and Right: * 88.Not Attempted B. Sit to Lying: * 05.Setup/clean up Asst C. Lying to Sitting on Side of Bed: * 05.Setup/clean up Asst D. Sit to Stand: * 05.Setup/clean up Asst E. Chair/Abm-tk-Scoou Transfer: * 05.Setup/clean up Asst F. Toilet Transfer: * 05.Setup/clean up Asst G. Car Transfer: * 88.Not Attempted H. Does the patient walk?: * 2. Yes I. Walk 10 Feet: * 05.Setup/clean up Asst Walk 10 Feet Comments: * See gait notes J. Walk 50' with Two Turns: * 05.Setup/clean up Asst K. Walk 150 Feet: * 88.Not Attempted L. Walking 10' on uneven surfaces: * 88.Not Attempted M. 1 Step (curb): * 88.Not Attempted N. 4 Steps (with or without railing): * 88.Not Attempted O. 12 Steps (with or without railing): * 88.Not Attempted P. Picking up Object from the Floor (from a standing): * 88.Not Attempted Q. Does the patient use a w/c (other than just transport): * 0. No R. Wheel 50' with 2 Turns(seated in w/c): * 05.Setup/clean up Asst RR. What type of w/c?: * 1. Manual Lower Extremity Exercised * Bilateral Supine Exercises * Ankle Pumps * Quad Sets * Glut Sets * Heel Slides * Hip Abductions * Short Arc Quads * Hip Adduction Number of Reps Supine * 15-20 Reps Sitting Exercises * Long Arc Quads * Marching * Hip Abduction * Heel Raises Number of Reps Sitting * 15-20 Reps Therapeutic Exercises Note * Patient demonstrates all activity with no immediate adverse effects. PT Interventions * Gait Training * Wheelchair Mobility * Therapeutic Excercise * Functional Training * Bed Mobility * Balance Activities * Safety/Precautions * HEP * Pt./Family Education * D/C Needs PT Progress Note * Pt demonstrates good safety awareness and no safety concerns with functional mobility and maintaining WB status. Discharge Recommendations * Home w/services Safe for discharge at this time * No Allergies Coded Allergies: No Known Drug Allergy (Verified Allergy, Unknown, 05/07/17) Vital Signs Vital Signs Date Time Temp Pulse Resp B/P (MAP) Pulse Ox O2 Delivery O2 Flow Rate FiO2 05/17/17 14:00 98.1 64 18 163/91 (115) 98 Room Air Laboratory Data CBC/BMP Laboratory Tests 05/17/17 07:38 Red Blood Count 3.17 L, Mean Corpuscular Volume 94.0, Mean Corpuscular Hemoglobin 31.5, Mean Corpuscular Hemoglobin Concent 33.6, Red Cell Distribution Width 14.2, Calcium Level 8.6 L, Aspartate Amino Transf (AST/SGOT) 20, Alanine Aminotransferase (ALT/SGPT) 17, Alkaline Phosphatase 71, Total Bilirubin 0.9, Total Protein 6.3 L, Albumin 3.0 L Labs 24H Laboratory Tests 2 05/17/17 07:38: Nucleated Red Blood Cells % (auto) 0.0, Anion Gap 6L, Glomerular Filtration Rate > 60.0, Blood Urea Nitrogen 11, Creatinine 0.56, Sodium Level 135L, Potassium Level 4.5, Chloride Level 100, Carbon Dioxide Level 29, Calcium Level 8.6L, Aspartate Amino Transf (AST/SGOT) 20, Alanine Aminotransferase (ALT/SGPT) 17, Alkaline Phosphatase 71, Total Bilirubin 0.9, Total Protein 6.3L, Albumin 3.0L, Albumin/Globulin Ratio 0.91L Current Medications Current Medications Current Medications Acetaminophen (Tylenol Tab) 650 mg Q6HP PRN PO PAIN OR FEVER Last administered on 05/14/17 08:17; Start 05/12/17 at 10:15; Stop 06/11/17 at 10:14 Acetaminophen/ Hydrocodone Bitart (Mchenry, Anexsia 5/325) 1 tab Q4HP PRN PO MODERATE/SEVERE PAIN (PS 5-10) Last administered on 05/17/17 06:36; Start at 10:15; Stop 05/24/17 at 23:55 Aspirin (Ecotrin) 325 mg DAILY PO Last administered on 05/17/17 08:18; Start 05/13/17 at 09:00; Stop 06/12/17 at 08:59 Magnesium Hydroxide (Milk Of Magnesia) 30 ml DAILYPRN PRN PO CONSTIPATION; Start 05/12/17 at 10:15; Stop 06/11/17 at 10:14 Metoprolol Tartrate (Lopressor) 12.5 mg BID PO Last administered on 05/14/17 08:17; Start 05/12/17 at 21:00; Stop 05/14/17 at 08:43; Status DC Metoprolol Tartrate (Lopressor) 25 mg BID PO Last administered on 05/17/17 08: 18; Start 05/14/17 at 21:00; Stop 06/13/17 at 20:59 Pantoprazole Sodium (Protonix) 40 mg DAILY PO Last administered on 05/17/17 08 :18; Start 05/13/17 at 09:00; Stop 06/12/17 at 08:59 Polyethylene Glycol (Miralax) 1 pkt DAILY PRN PO CONSTIPATION; Start 05/12/17 at 10:15; Stop 06/11/17 at 10:14 Senna/Docusate Sodium (Senokot S) 1 tab BID PO Last administered on 05/14/17 20:25; Start 05/12/17 at 21:00; Stop 06/11/17 at 20:59 Tramadol HCl (Ultram) 50 mg Q4HP PRN PO PAIN Last administered on 05/17/17 11: 11; Start 05/14/17 at 08:45; Stop 05/24/17 at 23:55 Trazodone HCl (Desyrel) 100 mg QHSP PRN PO INSOMNIA; Start 05/14/17 at 08:15; Stop 06/13/17 at 08:14 Zolpidem Tartrate (Ambien) 10 mg QHSP PRN PO INSOMNIA; Start 05/12/17 at 10:15 ; Stop 05/19/17 at 10:14; Status Cancel HAI TELLEZ MD May 17, 2017 15:14
[2017-05-17 20:00] VITALS: BP 167/84
[2017-05-18] MEDS: traMADol 50 MG TAB PO PRN (00:22)
[2017-05-18] MEDS: NORCO, ANEXSIA 5/325MG TABLET (HYDROcodone/ACETAMINOPHEN) PO PRN ×4 (04:56→21:40)
[2017-05-18 06:00] VITALS: BP 168/82
[2017-05-18 07:10] LABS: MEAN CORPUSCULAR HEMOGLOBIN 31.3 pg (27.0-33.0); MEAN CORPUSCULAR HGB CONC 33.2 g/dl (32.0-36.5); MEAN CORPUSCULAR VOLUME 94.3 fl (80.0-96.0); PLATELET COUNT, AUTOMATED 250 10^3/uL (150-450); RED CELL DISTRIBUTION WIDTH 14.3 % (11.5-14.5); WHITE BLOOD COUNT 4.2 10^3/uL (4.0-10.0)
[2017-05-18] MEDS: ASPIRIN ENTERIC 325 MG TAB PO SCH (08:21)
[2017-05-18] MEDS: METOPROLOL TART 25 MG TABLET PO SCH ×2 (08:22→21:17)
[2017-05-18] MEDS: PANTOPRAZOLE 40MG TAB (PROTONIX) PO SCH (08:22)
[2017-05-18] MEDS: SENOKOT S TAB PO SCH ×2 (08:22→20:45)
[2017-05-18] MEDS: LISINOPRIL 5 MG TAB PO SCH (09:38)
[2017-05-18] MEDS ORDERED: LISI-542 PO (11:08)
[2017-05-18] MEDS ORDERED: PANT40TA2 PO (11:08)
[2017-05-18] MEDS ORDERED: TRAM50TA2 PO (11:08)
[2017-05-18] MEDS ORDERED: METO1TAB87 PO (11:08)
--- NOTE | 2017-05-18 11:32 | REP ---
LEFT HIP, TWO VIEWS: HISTORY: Fracture. COMPARISON: 05/09/2017. The patient is status post ORIF of an intertrochanteric fracture. An intramedullary thomas and compression screw are present. There is no dislocation. The joint space is normal in appearance. IMPRESSION: The patient is status post ORIF of an intertrochanteric fracture. There is anatomic alignment. Signed by Leroy Pineda MD 05/18/2017 11:42 A
--- NOTE | 2017-05-18 13:00 | IPNPDOC ---
PM&R Progress Note Counseling Services Manager Progress Note DATE OF SERVICE: 05/18/17 DATE OF ADMISSION: May 12, 2017 at 12:05 INPATIENT REHABILITATION ADMISSION DAY: #7 SUBJECTIVE:The patient is a 71-year-old white female who lives independently at home in a two story house with basement. On 05/07/2017 she was on a step stool in her basement and fell onto her left hip sustaining a left hip fracture and was brought to [facility] emergency department and found to have an intertrochanteric hip fracture and was evaluated by orthopedics and elected to have open reduction, internal fixation with intramedullary nail and screw fixation on the same day. The patient who has history of severe GI bleed whenever on anticoagulation for her atrial fibrillation, previously on Coumadin and Xarelto having a bleed developed severe blood loss in the postoperative course and desaturated to 79 during a treatment in physical therapy, and marked hypotension. The patient received transfusion times two and since then has had some problems with hypertension. Her respiratory compromise has cleared up. She has been progressing well in physical and occupational therapy and is very motivated to regain independence to return to living in her home alone. Her course also has involved some hyponatremia. Patient feeling good, but concerned about being ready to return home. Pain control is adequate. ALLERGIES: See Below MEDICATIONS: Reviewed, see below. OBJECTIVE: VITAL SIGNS: Please see below. PHYSICAL EXAMINATION: GENERAL: The patient is a pleasant, alert and well oriented 5 foot 5, 67.6 kg late middle-aged white female who looks a little younger than stated age. Patient is in minimal musculoskeletal distress favoring Left Hip. HEENT: Normocephalic/atraumatic. CARDIOVASCULAR: Irregularly irregular with 2/4 bilateral radial pulses. LUNGS: All almaguer clear to auscultation. ABDOMEN: Obese, benign with normal bowel sounds in all quadrants. NEUROLOGICAL: Alert and oriented 4. Speech clear coherent and appropriate. Affect pleasant and cooperative with a little anxiousness. Sensorimotor is good to full in bilateral upper right lower extremity with some guarding in the left lower extremity. SKIN: Left hip incision is not inflamed without significant drainage. LABORATORY DATA: Reviewed. Please see below. MICROBIOLOGY: Please see below. IMAGING: No new imaging. DVT prophylaxis ordered?: Aspirin with LOUIE hose and sequential compression stockings. ASSESSMENT AND PLAN: 1. Rehabilitation of left hip fracture status post ORIF: Patient starting physical and occupational therapy and expressing her motivation to regain strength and function so she may return home and to working. Patient making very good progress in PT/OT ans should meet discharge to home alone goals next week. For pain, I have added Tramadol 50 mg Q4Hrs PRN which is helping. Patient did 11 stairs this morning and needs to hit 12 for discharge goal. Anticipated D /C Date is 05/19/17 with [facility] RN, PT & OT. 2. Anemia: Patient who may have had GI bleed in light of her history of multiple GI bleeds is maintaining her hemoglobin and hematocrit at 9.3 and 28.0 % today on 05/18/17. We will continue to monitor H&H and blood pressure and heart rate. 3. Atrial fibrillation: Patient remains in the arrhythmia but is rate controlled and showing some elevated blood pressure, so I will add Lisinopril 5 mg PO Daily. Home on ASA for anticoagulation. 4. Hypoalbuminemia: Relatively good in light of fracture and extensive blood loss and needing transfusion patient currently at 2.6. We will encourage nutrition to focus on adequate calories and protein. 5. Hypertension: Patient with Heart Rate running 52 to 60 lately after increasing Metoprolol Tartrate to 25 mg BID, so she is now Beta Blocked, but SBP running in 160's. I have restarted Lisinopril at 5 mg PO Daily. TIME SPENT: Chart Review, examination and documentation required greater than 25 minutes. Allergies Coded Allergies: No Known Drug Allergy (Verified Allergy, Unknown, 05/07/17) Vital Signs Vital Signs Date Time Temp Pulse Resp B/P (MAP) Pulse Ox O2 Delivery O2 Flow Rate FiO2 05/18/17 10:15 20 Room Air 05/18/17 09:38 168/82 05/18/17 08:22 57 05/18/17 06:00 98.5 99 Laboratory Data CBC/BMP Laboratory Tests 05/18/17 06:54 Red Blood Count 2.97 L, Mean Corpuscular Volume 94.3, Mean Corpuscular Hemoglobin 31.3, Mean Corpuscular Hemoglobin Concent 33.2, Red Cell Distribution Width 14.3 Labs 24H Laboratory Tests 2 05/18/17 06:54: Nucleated Red Blood Cells % (auto) 0.0 Current Medications Current Medications Current Medications Acetaminophen (Tylenol Tab) 650 mg Q6HP PRN PO PAIN OR FEVER Last administered on 05/14/17 08:17; Start 05/12/17 at 10:15; Stop 06/11/17 at 10:14 Acetaminophen/ Hydrocodone Bitart ([place], [place] 5/325) 1 tab Q4HP PRN PO MODERATE/SEVERE PAIN (PS 5-10) Last administered on 05/18/17 09:39; Start at 10:15; Stop 05/24/17 at 23:55 Aspirin (Ecotrin) 325 mg DAILY PO Last administered on 05/18/17 08:21; Start 05/13/17 at 09:00; Stop 06/12/17 at 08:59 Lisinopril (Prinivil) 5 mg DAILY PO Last administered on 05/18/17 09:38; Start 05/18/17 at 09:00; Stop 06/17/17 at 08:59 Magnesium Hydroxide (Milk Of Magnesia) 30 ml DAILYPRN PRN PO CONSTIPATION; Start 05/12/17 at 10:15; Stop 06/11/17 at 10:14 Metoprolol Tartrate (Lopressor) 12.5 mg BID PO Last administered on 05/14/17 08:17; Start 05/12/17 at 21:00; Stop 05/14/17 at 08:43; Status DC Metoprolol Tartrate (Lopressor) 25 mg BID PO Last administered on 05/18/17 08: 22; Start 05/14/17 at 21:00; Stop 06/13/17 at 20:59 Pantoprazole Sodium (Protonix) 40 mg DAILY PO Last administered on 05/18/17 08 :22; Start 05/13/17 at 09:00; Stop 06/12/17 at 08:59 Polyethylene Glycol (Miralax) 1 pkt DAILY PRN PO CONSTIPATION; Start 05/12/17 at 10:15; Stop 06/11/17 at 10:14 Senna/Docusate Sodium (Senokot S) 1 tab BID PO Last administered on 05/14/17 20:25; Start 05/12/17 at 21:00; Stop 06/11/17 at 20:59 Tramadol HCl (Ultram) 50 mg Q4HP PRN PO PAIN Last administered on 05/18/17 00: 22; Start 05/14/17 at 08:45; Stop 05/24/17 at 23:55 Trazodone HCl (Desyrel) 100 mg QHSP PRN PO INSOMNIA; Start 05/14/17 at 08:15; Stop 06/13/17 at 08:14 Zolpidem Tartrate (Ambien) 10 mg QHSP PRN PO INSOMNIA; Start 05/12/17 at 10:15 ; Stop 05/19/17 at 10:14; Status Cancel HAI TELLEZ MD May 18, 2017 13:00
[2017-05-18 14:53] VITALS: BP 133/81
[2017-05-18 21:00] VITALS: BP 138/60
[2017-05-19] MEDS: traMADol 50 MG TAB PO PRN ×3 (03:47→12:55)
[2017-05-19 06:00] VITALS: BP 144/74
[2017-05-19 06:38] LABS: MEAN CORPUSCULAR HEMOGLOBIN 31.7 pg (27.0-33.0); MEAN CORPUSCULAR HGB CONC 34.1 g/dl (32.0-36.5); MEAN CORPUSCULAR VOLUME 93.1 fl (80.0-96.0); PLATELET COUNT, AUTOMATED 260 10^3/uL (150-450); RED CELL DISTRIBUTION WIDTH 14.2 % (11.5-14.5); WHITE BLOOD COUNT 3.9 10^3/uL (4.0-10.0)
[2017-05-19 08:41] VITALS: BP 144/74
[2017-05-19] MEDS: ASPIRIN ENTERIC 325 MG TAB PO SCH (08:41)
[2017-05-19] MEDS: METOPROLOL TART 25 MG TABLET PO SCH (08:41)
[2017-05-19] MEDS: LISINOPRIL 5 MG TAB PO SCH (08:41)
[2017-05-19] MEDS: PANTOPRAZOLE 40MG TAB (PROTONIX) PO SCH (08:41)
[2017-05-19] MEDS: SENOKOT S TAB PO SCH (08:42)
[2017-05-19 14:00] VITALS: BP 125/80
--- NOTE | 2017-05-19 21:12 | PMRDS ---
DATE OF ADMISSION: 05/12/2017 DATE OF DISCHARGE: 05/19/2017 DISCHARGE DIAGNOSES: Rehabilitation of left hip fracture, status post open reduction, internal fixation with intramedullary nail and screw from fall on 05/07/2017 from a step stool in her basement. The patient was found rapidly and brought to [facility] and evaluated for trauma and left hip pain. Was found to have sustained a left hip fracture. The patient then had surgery and progressed in physical and occupational therapy after correction of the severe blood loss related to the hip and possibly to GI sources as the patient has a history of GI blood losses related to anticoagulation therapy for her atrial fibrillation. PAST MEDICAL HISTORY: Includes atherosclerotic cardiovascular disease, atrial fibrillation for which she is on aspirin and does has failed Coumadin and Xeralto. Also hypertension. The patient also with hyponatremia and recurrent GI bleeds. The patient is right handed. PROCEDURES PERFORMED DURING THIS ADMISSION: Left hip x-ray showing good positioning and alignment of the hardware prior to her being discharged. This was done yesterday. LABORATORY: Shows moderate anemia on admission to this unit with hemoglobin and hematocrit of 9.8 and 29.7 and remained reasonably stable. Most recent hemoglobin and hematocrit is 9.2 and 27.0. Chemistry showed hyponatremia with sodium 134 and remains low and more recent 135. Otherwise, normal electrolytes. BUN and creatinine most recently is 0.56. Calcium 8.6 at discharge with albumin having gone from 2.6 to 3.0 during her admission to this unit and liver function tests having remained normal. HOSPITAL COURSE: The patient admitted to acute rehabilitation unit on 05/12/2017 and started on a program of physical and occupational therapy with rehabilitation, nursing, podiatry and medicine consultants. The patient throughout has been basically stable with good pain control though feeling a little bit anxious about going home due to deemed to be able to do 13 stairs inside to get up to her home after doing one step to get into the enclosed area where the staircase is. 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 In physical therapy the patient progressed from ambulating 28 feet with contact guard assistance. She was in front wheeled walker and gait belt and not doing stairs to doing repeated sets of 9 to 10 stairs, ambulating 150 feet with modified independence using front wheeled walker and using quad cane for stairs and left-sided grab and partial weightbearing in the left lower extremity. The patient otherwise medically stable and felt to be ready for discharge today to home. She will have some family support at home initially. DISCHARGE MEDICATIONS: - lisinopril 5 mg daily - metoprolol tartrate for atrial fibrillation rate control 25 mg twice a day - pantoprazole 40 mg daily for GI protection - tramadol 50 mg every 4 hours as needed for pain - aspirin 325 mg daily for anticoagulation, deep venous thrombosis (DVT) prophylaxis - Percocet 1 to 2 tablets every 4 hours as needed moderate to severe pain COMPLICATIONS: None during the course of the admission. DISCHARGE PLAN: The patient discharged to home with family to followup with Dr. Alanis Amador within one week on 05/24/2017 at 9:[address] Nathan Johnson on 06/08/2017 at 11:00 a.m. She is on a regular diet and mani have been removed and she may use dry gauze to the incision site as needed. TIME SPENT ON DISCHARGE: Greater than 35 minutes.
== END 2017-05-19 15:45 | disposition home health service (06) | DRG 560 ==
LOC: M PM&R 05-12 12:05
PROVIDERS: ADMIT Physical Medicine & Rehabilitation; ATTEND Physical Medicine & Rehabilitation
DX: S72.142D Displaced intertrochanteric fracture of left femur, subsequent encounter for closed fracture with routine healing (principal); E87.1 Hypo-osmolality and hyponatremia; D62 Acute posthemorrhagic anemia; I48.2 Chronic atrial fibrillation; I10 Essential (primary) hypertension; Z79.82 Long term (current) use of aspirin; Z79.899 Other long term (current) drug therapy; I45.10 Unspecified right bundle-branch block; E88.09 Other disorders of plasma-protein metabolism, not elsewhere classified; W18.30XD Fall on same level, unspecified, subsequent encounter; Y92.009 Unspecified place in unspecified non-institutional (private) residence as the place of occurrence of the external cause

== ENCOUNTER 2020-12-15 12:25 | Emergency (ER) | payer BC, MEDICARE ==
[~2020-12-15] VITALS: Ht 162.6 cm; Wt 74.2 kg
[~2020-12-15 12:25] MED LIST changes: -/PANT40TA; -/PANT40TA OR; -/WARF5TA OR; +ASPI-1 PO; -ASPI1TAB PO; -ASPI325T PO; +ASPI81TA26 PO; +COUM1TAB17 OR; -LISI-538 PO; +LISI-898 PO; +LISI20TA33 PO; +METO1TAB87 PO; +PANT40TA29 PO; +PROT1TAB2; +PROT1TAB2 OR; +TRAM50TA2 PO
[2020-12-15] MEDS ORDERED: LISI20TA33 PO (12:39)
[2020-12-15] MEDS ORDERED: ELIQ5TAB PO (12:39)
[2020-12-15] MEDS ORDERED: NS 500 ML IV ONE (12:55)
--- NOTE | 2020-12-15 13:12 | REP ---
INDICATION: abdl pain COMPARISON: 05/07/2017 TECHNIQUE: Portable AP view of the chest FINDINGS: The mediastinum and cardiac silhouette are stable and cardiomegaly is again suggested. The lung almaguer are clear without acute consolidation, effusion, or pneumothorax. Skeletal structures are intact. IMPRESSION: Chronic cardiomegaly. No acute cardiopulmonary process appreciated. <Electronically signed by Pawel Travis > 12/15/20 [id number]
[2020-12-15 13:24] LABS: BASO % 0.5 % (0.0-1.0); EOS # 0.1 10^3/uL (0.0-0.5); EOS % 1.4 % (0.0-3.0); HEMOGLOBIN 11.7 g/dl (12.0-15.5); LYMPH # 1.4 10^3/uL (1.5-5.0); LYMPH % 24.6 % (24.0-44.0); MEAN CORPUSCULAR HEMOGLOBIN 31.7 pg (27.0-33.0); MEAN CORPUSCULAR HGB CONC 32.5 g/dl (32.0-36.5); MEAN CORPUSCULAR VOLUME 97.6 fl (80.0-96.0); MONO # 0.5 10^3/uL (0.0-0.8); MONO % 8.3 % (2.0-8.0); NEUTROPHILS # 3.7 10^3/uL (1.5-8.5); NEUTROPHILS % 64.8 % (36.0-66.0); PLATELET COUNT, AUTOMATED 199 10^3/uL (150-450); RED BLOOD COUNT 3.69 10^6/uL (4.00-5.40); WHITE BLOOD COUNT 5.7 10^3/uL (4.0-10.0)
[2020-12-15 13:41] LABS: ALBUMIN 3.7 GM/DL (3.2-5.2); ALT/SGPT 19 U/L (12-78); AMYLASE 91 U/L (25-115); BILIRUBIN,DIRECT 0.2 MG/DL (0.0-0.2); BILIRUBIN,TOTAL 0.8 MG/DL (0.2-1.0); CK-MB VALUE MASS 1.1 NG/ML (<3.6); CPK CREATINE PHOSPHOKINASE 116 U/L (26-192); LIPASE 127 U/L (73-393); MB/CK RELATIVE INDEX 0.95 (< OR =4); TOTAL PROTEIN 7.4 GM/DL (6.4-8.2); TROPONIN I < 0.02 NG/ML (< 0.10)
--- NOTE | 2020-12-15 14:29 | REP ---
INDICATION: ro diverticulits. COMPARISON: 01/09/2013 TECHNIQUE: Axial contrast-enhanced images from the lung bases to the pubic symphysis using 100 cc Isovue 370 intravenous contrast material. Coronal and sagittal reformations obtained. This CT examination was performed using the following dose reduction techniques: Automated exposure control, adjustment of mA and/or kv according to the patient's size, and the use of iterative reconstruction technique. FINDINGS: Lung bases are clear. Cardiomegaly noted. Liver, spleen, pancreas, gallbladder, and bilateral adrenal glands are normal. Kidneys demonstrate age-related cortical thinning and scarring. There is no evidence for small bowel obstruction or perforation. Colonic diverticulosis noted. There is subtle mucosal thickening and stranding involving the distal sigmoid colon within the deep pelvis (series 301, images 98-108) suggesting sigmoid diverticulitis. No associated significant ascites or drainable collection/abscess. Pelvis demonstrates normal bladder and age-appropriate uterus/adnexa. No ascites. No free air. No intraperitoneal or retroperitoneal adenopathy. Abdominal aorta and vasculature appear normal. Musculoskeletal structures demonstrate osteopenia and degenerative changes without acute osseous abnormality. IMPRESSION: 1. Small focus of diverticulitis involving the distal sigmoid colon within the pelvis. No associated bowel obstruction or perforation. No drainable collection/abscess or ascites. <Electronically signed by Pawel Travis > 12/15/20 [id number]
[2020-12-15] MEDS ORDERED: ISOVUE-370 76% 100ML VIAL As Ordered ONE (14:37)
[2020-12-15] MEDS ORDERED: CIPROFLOXACIN 250MG TAB PO ONE (14:50)
[2020-12-15] MEDS ORDERED: metroNIDAZOLE (FLAGYL) 500MG TABLET PO ONE (14:50)
[2020-12-15] MEDS ORDERED: CIPR-249 PO (14:52)
[2020-12-15] MEDS ORDERED: FLAG500T PO (14:52)
[2020-12-15 15:00] VITALS: BP 188/95
--- NOTE | 2020-12-15 19:20 | ECGEPIP ---
[facility] - ED Test Date: 2020-12-15 Pat Name: PIETRO JOSEPH Department: Room: - Gender: Female Pleat Taper: ALEXIS : 1945 Requested By: Anne Marquez Order Number: [id number] Reading MD: Anne Marquez Measurements Intervals [place]tt Rate: 67 P: DC: QRS: 43 QRSD: 98 T: 5 QT: 410 QTc: 433 Interpretive Statements Atrial fibrillation Incomplete right bundle branch block Nonspecific ST T wave changes 05/07/[address] T wave changes Electronically Signed on 12-15-2020 19:19:57 EDT by Anne Marquez
== END 2020-12-15 15:15 | disposition home or self-care (01) ==
LOC: M ED 12:25
DX: I10 Essential (primary) hypertension (principal); K57.92 Diverticulitis of intestine, part unspecified, without perforation or abscess without bleeding; Z79.01 Long term (current) use of anticoagulants
CPT/HCPCS: 71045; 74177; 80047; 80076; 81001; 82150; 82550; 82553; 83605; 83690; 84484; 85025; 87040; 93005; 93041; 96360; 96361; 99285; Q9967

== ENCOUNTER → 2021-09-29 | Outpatient (REF) | payer MEDICARE ==
[~2021-09-29] MED LIST changes: +CIPR-249 PO; +ELIQ5TAB PO; +FLAG500T PO; -LISI-898 PO; +LISI5TAB11 PO
[2021-09-29 17:42] LABS: PHOSPHORUS LEVEL 3.5 MG/DL (2.5-4.9)
[2021-09-29 18:12] LABS: PTH INTACT 63.2 PG/ML (18.5-88.0)
== END ==
LOC: M LAB REF 17:13
PROVIDERS: ATTEND Nurse Practitioner Adult Health
DX: N18.31 Chronic kidney disease, stage 3a (principal)

== ENCOUNTER → 2021-11-12 | Outpatient (CLI) | payer MEDICARE | LOC: M WHC 12:52 | PROVIDERS: ATTEND Nurse Practitioner Adult Health | DX: Z12.31 Encounter for screening mammogram for malignant neoplasm of breast (principal); M85.80 Other specified disorders of bone density and structure, unspecified site; Z78.0 Asymptomatic menopausal state ==

== ENCOUNTER → 2022-07-15 | Outpatient (REF) | payer MEDICARE ==
[2022-07-15 17:22] LABS: IRON (FE) 84 UG/DL (50-170); PERCENT SATURATION 24.6 % (13.2-45.0); TOTAL IRON BINDING CAPACITY 342 UG/DL (250-425)
[2022-07-15 17:27] LABS: HEMATOCRIT 40.6 % (36.0-47.0)
[2022-07-15 18:20] LABS: VITAMIN B12 LEVEL 941 PG/ML (211-911)
[2022-07-15 18:31] LABS: HEPATITIS B SURFACE ANTIGEN NEGATIVE (NEGATIVE)
[2022-07-15 18:53] LABS: HEPATITIS B CORE ANTIBODY IGM NEGATIVE (NEGATIVE)
[2022-07-17 15:10] LABS: ANTINUCLEAR ANTIBODIES DIRECT Negative (Negative)
== END ==
LOC: M LAB REF 16:29
PROVIDERS: ATTEND Nurse Practitioner Adult Health
DX: R71.8 Other abnormality of red blood cells (principal); R74.8 Abnormal levels of other serum enzymes

== ENCOUNTER 2023-09-13 13:27 | Observation (INO) | payer MEDICARE ==
[~2023-09-13] VITALS: Ht 162.6 cm; Wt 63.3 kg
[2023-09-13 15:02] LABS: CK-MB VALUE MASS < 1.0 NG/ML (<3.6)
[2023-09-13 15:03] LABS: ETHYL ALCOHOL (ETHANOL) < 0.003 % (0.000-0.010)
[2023-09-13 15:05] LABS: ALBUMIN 3.8 G/DL (3.2-5.2); ALKALINE PHOSPHATASE 90 U/L (46-116); ALT/SGPT 15 U/L (7.0-40); AST/SGOT 35 U/L (<34); BILIRUBIN,DIRECT 0.2 MG/DL (<0.4); BILIRUBIN,TOTAL 0.7 MG/DL (0.3-1.2); BLOOD UREA NITROGEN 26 MG/DL (9-23); CALCIUM LEVEL 9.8 MG/DL (8.3-10.6); CARBON DIOXIDE LEVEL 25 MMOL/L (20-31); CHLORIDE LEVEL 108 MMOL/L (98-107); CREATININE FOR GFR 1.59 MG/DL (0.55-1.30); GLOMERULAR FILTRATION RATE 33.7 (>39); GLUCOSE, FASTING 102 MG/DL (74-106); POTASSIUM SERUM 4.6 MMOL/L (3.5-5.1); SODIUM LEVEL 143 MMOL/L (136-145)
[2023-09-13 15:07] LABS: THYROID STIMULATING HORMONE 2.177 uIU/ML (0.55-4.78)
[2023-09-13 15:08] LABS: CPK CREATINE PHOSPHOKINASE 107 U/L (34-145); MB/CK RELATIVE INDEX 0.93 (< OR =4)
[2023-09-13 15:10] LABS: BASO % 0.7 % (0.0-1.0); EOS # 0.1 10^3/uL (0.0-0.5); EOS % 1.1 % (0.0-3.0); HEMATOCRIT 33.4 % (36.0-47.0); HEMOGLOBIN 10.7 g/dl (12.0-15.5); LYMPH # 1.9 10^3/uL (1.5-5.0); LYMPH % 34.8 % (24.0-44.0); MEAN CORPUSCULAR VOLUME 96.8 fl (80.0-96.0); MONO # 0.4 10^3/uL (0.0-0.8); MONO % 6.9 % (2.0-8.0); NEUTROPHILS % 56.3 % (36.0-66.0); PLATELET COUNT, AUTOMATED 212 10^3/uL (150-450); RED BLOOD COUNT 3.45 10^6/uL (4.00-5.40); WHITE BLOOD COUNT 5.4 10^3/uL (4.0-10.0)
[2023-09-13 15:52] LABS: CK-MB VALUE MASS < 1.0 NG/ML (<3.6)
[2023-09-13 15:55] LABS: CPK CREATINE PHOSPHOKINASE 98 U/L (34-145); MB/CK RELATIVE INDEX 1.02 (< OR =4)
[2023-09-13 17:58] LABS: CK-MB VALUE MASS < 1.0 NG/ML (<3.6)
[2023-09-13 18:23] LABS: CPK CREATINE PHOSPHOKINASE 87 U/L (34-145); MB/CK RELATIVE INDEX 1.14 (< OR =4)
[2023-09-13] MEDS: cefTRIAXone SOD 1 GM in D5W MINI-BAG PLUS 50 ML IV ONE (18:33)
[2023-09-13] MEDS: NS 1,000 ML IV SCH ×2 (18:39→20:56)
[2023-09-13] MEDS ORDERED: ACETAMINOPHEN TAB 650MG DOSE (2X325MG) PO PRN (19:50)
[2023-09-13 20:35] LABS: PROCALCITONIN <0.04 ng/ml
[2023-09-13] MEDS ORDERED: MIRT-88 PO (22:28)
[2023-09-13] MEDS ORDERED: GABA800T4 PO (22:28)
[2023-09-13] MEDS ORDERED: ATOR80TA59 PO (22:28)
[2023-09-13] MEDS ORDERED: AMLO1TAB25 PO (22:28)
[2023-09-13] MEDS ORDERED: DOXA1TAB67 PO (22:28)
[2023-09-13 22:30] VITALS: BP 135/76; TEMP 97.3; O2SAT 95
[2023-09-13] MEDS ORDERED: HOME MED LIST COMPLETE! XX SCH (22:30)
[2023-09-14 04:50] VITALS: BP 133/78; TEMP 97.5; O2SAT 97
[2023-09-14 06:05] LABS: HEMATOCRIT 32.6 % (36.0-47.0); HEMOGLOBIN 10.2 g/dl (12.0-15.5); MEAN CORPUSCULAR HEMOGLOBIN 30.9 pg (27.0-33.0); MEAN CORPUSCULAR HGB CONC 31.3 g/dl (32.0-36.5); MEAN CORPUSCULAR VOLUME 98.8 fl (80.0-96.0); PLATELET COUNT, AUTOMATED 181 10^3/uL (150-450); WHITE BLOOD COUNT 3.8 10^3/uL (4.0-10.0)
[2023-09-14 06:38] LABS: ALBUMIN 3.5 G/DL (3.2-5.2); ALKALINE PHOSPHATASE 80 U/L (46-116); ALT/SGPT 13 U/L (7.0-40); AST/SGOT 24 U/L (<34); BILIRUBIN,TOTAL 0.5 MG/DL (0.3-1.2); BLOOD UREA NITROGEN 26 MG/DL (9-23); CALCIUM LEVEL 9.3 MG/DL (8.3-10.6); CARBON DIOXIDE LEVEL 22 MMOL/L (20-31); CHLORIDE LEVEL 110 MMOL/L (98-107); CREATININE FOR GFR 1.42 MG/DL (0.55-1.30); GLOMERULAR FILTRATION RATE 38.4 (>39); GLUCOSE, FASTING 90 MG/DL (74-106); MAGNESIUM LEVEL 1.8 MG/DL (1.8-2.4); POTASSIUM SERUM 3.8 MMOL/L (3.5-5.1); SODIUM LEVEL 144 MMOL/L (136-145); TOTAL PROTEIN 7.2 G/DL (5.7-8.2)
[2023-09-14] MEDS ORDERED: HOME MED LIST COMPLETE! XX SCH (08:35)
[2023-09-14] MEDS ORDERED: ACET1TAB55 PO (10:10)
[2023-09-14] MEDS ORDERED: SENN-186 PO (10:10)
[2023-09-14] MEDS ORDERED: FERR325T3 PO (10:10)
[2023-09-14] MEDS ORDERED: CRAN450T4 PO (10:10)
[2023-09-14 12:22] LABS: IMMUNOGLOBULIN A 331.5 MG/DL (40-350)
[2023-09-14 12:23] LABS: IMMUNOGLOBULIN G 1687 MG/DL (650-1600)
[2023-09-14 14:00] VITALS: BP 148/79; TEMP 97.3; O2SAT 96
[2023-09-14] MEDS: cefTRIAXone SOD 1 GM in D5W MINI-BAG PLUS 50 ML IV SCH (17:35)
[2023-09-14 20:10] VITALS: BP 147/82; TEMP 97.5; O2SAT 98
[2023-09-14] MEDS: MIRTAZAPINE 7.5MG PER 1/2 TABLET PO SCH (21:51)
[2023-09-14] MEDS: SENNA 8.6 MG TAB (SENOKOT) PO SCH (21:52)
[2023-09-14] MEDS: ATORVASTATIN 20 MG TAB PO SCH (21:52)
[2023-09-14] MEDS: GABAPENTIN 400MG CAP PO SCH (21:52)
[2023-09-15 05:41] VITALS: BP 148/81; TEMP 97.2; O2SAT 99
[2023-09-15 06:52] LABS: BASO # 0.1 10^3/uL (0.0-0.2); BASO % 1.9 % (0.0-1.0); EOS # 0.2 10^3/uL (0.0-0.5); EOS % 6.6 % (0.0-3.0); HEMATOCRIT 31.6 % (36.0-47.0); HEMOGLOBIN 9.6 g/dl (12.0-15.5); LYMPH # 1.5 10^3/uL (1.5-5.0); LYMPH % 47.6 % (24.0-44.0); MEAN CORPUSCULAR HEMOGLOBIN 30.3 pg (27.0-33.0); MEAN CORPUSCULAR HGB CONC 30.4 g/dl (32.0-36.5); MEAN CORPUSCULAR VOLUME 99.7 fl (80.0-96.0); MONO # 0.3 10^3/uL (0.0-0.8); MONO % 10.3 % (2.0-8.0); NEUTROPHILS # 1.1 10^3/uL (1.5-8.5); NEUTROPHILS % 33.6 % (36.0-66.0); PLATELET COUNT, AUTOMATED 170 10^3/uL (150-450); RED BLOOD COUNT 3.17 10^6/uL (4.00-5.40); WHITE BLOOD COUNT 3.2 10^3/uL (4.0-10.0)
[2023-09-15 07:49] LABS: CALCIUM LEVEL 8.8 MG/DL (8.3-10.6); CREATININE FOR GFR 1.36 MG/DL (0.55-1.30); GLOMERULAR FILTRATION RATE 40.4 (>39); POTASSIUM SERUM 3.8 MMOL/L (3.5-5.1)
[2023-09-15] MEDS: FERROUS SULFATE 325MG TAB PO SCH (08:15)
[2023-09-15] MEDS: DOXAZOSIN MESYLATE 4 MG TAB PO SCH (08:16)
[2023-09-15 14:00] VITALS: BP 143/79; TEMP 97.3; O2SAT 98
[2023-09-15] MEDS: AUGMENTIN 875 MG TAB PO SCH (20:25)
[2023-09-15 20:32] VITALS: BP 143/78; TEMP 97.3; O2SAT 97
[2023-09-16 05:31] VITALS: BP 143/77; TEMP 97.2; O2SAT 94
[2023-09-16 07:34] LABS: BASO # 0.1 10^3/uL (0.0-0.2); BASO % 1.6 % (0.0-1.0); EOS # 0.2 10^3/uL (0.0-0.5); EOS % 6.2 % (0.0-3.0); HEMATOCRIT 29.9 % (36.0-47.0); HEMOGLOBIN 9.5 g/dl (12.0-15.5); LYMPH # 1.5 10^3/uL (1.5-5.0); LYMPH % 46.4 % (24.0-44.0); MEAN CORPUSCULAR HEMOGLOBIN 30.9 pg (27.0-33.0); MEAN CORPUSCULAR HGB CONC 31.8 g/dl (32.0-36.5); MEAN CORPUSCULAR VOLUME 97.4 fl (80.0-96.0); MONO # 0.4 10^3/uL (0.0-0.8); MONO % 11.2 % (2.0-8.0); NEUTROPHILS # 1.1 10^3/uL (1.5-8.5); NEUTROPHILS % 34.3 % (36.0-66.0); PLATELET COUNT, AUTOMATED 173 10^3/uL (150-450); RED BLOOD COUNT 3.07 10^6/uL (4.00-5.40); WHITE BLOOD COUNT 3.2 10^3/uL (4.0-10.0)
[2023-09-16 08:13] LABS: CREATININE FOR GFR 1.5 MG/DL (0.55-1.30); POTASSIUM SERUM 4.6 MMOL/L (3.5-5.1)
[2023-09-16 08:37] VITALS: BP 144/77
[2023-09-16] MEDS ORDERED: AMOX875T2 PO (11:25)
[2023-09-16] MEDS ORDERED: BACI1CAP PO (11:25)
== END 2023-09-16 14:04 | disposition home health service (06) ==
LOC: M ED 13:27 → EDBD 13:27 → M ED INP 19:48 → ENRESERV 21:00 → M MSPAV 22:04
PROVIDERS: ADMIT Internal Medicine; ATTEND General Practice
DX: N39.0 Urinary tract infection, site not specified (principal); R41.82 Altered mental status, unspecified; G93.41 Metabolic encephalopathy; I10 Essential (primary) hypertension; D63.8 Anemia in other chronic diseases classified elsewhere; Z86.73 Personal history of transient ischemic attack (TIA), and cerebral infarction without residual deficits; N17.9 Acute kidney failure, unspecified; E87.1 Hypo-osmolality and hyponatremia; K57.92 Diverticulitis of intestine, part unspecified, without perforation or abscess without bleeding; K22.2 Esophageal obstruction; D72.818 Other decreased white blood cell count; Z79.899 Other long term (current) drug therapy
CPT/HCPCS: 36415; 51701; 70450; 71045; 76775; 80048; 80053; 80076; 81001; 82077; 82140; 82550; 82553; 82784; 83735; 84145; 84443; 84484; 85025; 85027; 86162; 87040; 87088; 87186; 92610; 93005; 93041; 94760; 96361; 96365; 96366; 97110; 97112; 97161; 97165; 97530; 97535; 99285; G0378; J0696

== ENCOUNTER → 2023-09-27 | Outpatient (REF) | payer MEDICARE ==
[~2023-09-27] MED LIST changes: +ACET1TAB55 PO; +AMLO1TAB25 PO; +AMOX875T2 PO; +ATOR80TA59 PO; +BACI1CAP PO; +CRAN450T4 PO; +DOXA1TAB67 PO; +FERR325T3 PO; +GABA800T4 PO; +MIRT-88 PO; +SENN-186 PO
[2023-09-27 18:39] LABS: PERCENT SATURATION 16.7 % (13.2-45.0)
[2023-09-27 18:41] LABS: FERRITIN 76.6 NG/ML (7.3-270.7)
== END ==
LOC: M LAB REF 17:08
PROVIDERS: ATTEND Internal Medicine
DX: D64.9 Anemia, unspecified (principal)

== ENCOUNTER 2023-10-05 08:19 | Inpatient (IN) | payer MEDICARE ==
[~2023-10-05] VITALS: Ht 160 cm; Wt 61.4 kg
[2023-10-05] VITALS (17 sets, daily range): BP systolic 111–170; BP diastolic 64–87; TEMP 97.4–99; O2SAT 94–100
[2023-10-05] MEDS ORDERED: ISOVUE-370 76% 100ML VIAL As Ordered ONE (08:32)
[2023-10-05] MEDS: TENECTEPLASE 50 MG/10 ML VIAL IVP ONE (09:23)
[2023-10-05] MEDS: SODIUM CHLORIDE 0.9% INJ 10 ML SYR IV ONE ×2 (09:23→13:14)
[2023-10-05 09:24] LABS: HEMATOCRIT 34.2 % (36.0-47.0); HEMOGLOBIN 11.2 g/dl (12.0-15.5); MEAN CORPUSCULAR HEMOGLOBIN 30.7 pg (27.0-33.0); MEAN CORPUSCULAR HGB CONC 32.7 g/dl (32.0-36.5); MEAN CORPUSCULAR VOLUME 93.7 fl (80.0-96.0); PLATELET COUNT, AUTOMATED 148 10^3/uL (150-450); RED BLOOD COUNT 3.65 10^6/uL (4.00-5.40); WHITE BLOOD COUNT 5.8 10^3/uL (4.0-10.0)
[2023-10-05 09:27] LABS: INR 1.05; PARTIAL THROMBOPLASTIN TIME 26.1 SECONDS (24.8-34.2); PROTHROMBIN TIME 13.4 SECONDS (12.5-14.5)
[2023-10-05] MEDS: LIDOCAINE 2% 5ML JELLY UROJET TOP ONE (09:30)
[2023-10-05 09:36] LABS: CK-MB VALUE MASS 1.3 NG/ML (<3.6); CREATININE FOR GFR 1.63 MG/DL (0.55-1.30); GLOMERULAR FILTRATION RATE 32.7 (>39); MB/CK RELATIVE INDEX 1.32 (< OR =4); POTASSIUM SERUM 4.6 MMOL/L (3.5-5.1)
[2023-10-05] MEDS ORDERED: ALBUTEROL SULFATE 2.5MG/0.5ML INH NEB SOLN NEB PRN (09:45)
[2023-10-05 09:48] LABS: ATYPICAL LYMPH 2 % (0-5); EOSINOPHILS 2 % (0-3); LYMPHOCYTES 69 % (16-44); MONOCYTES 4 % (0-5); NEUTROPHILS 23 % (28-66)
[2023-10-05 09:49] LABS: ANISOCYTOSIS 1+; PLATELET ESTIMATE NORMAL (NORMAL)
[2023-10-05 09:50] LABS: BURR CELLS 1+; OVALOCYTES 1+; POIKILOCYTOSIS 1+
[2023-10-05] MEDS ORDERED: BACI1CAP PO (10:55)
[2023-10-05] MEDS ORDERED: HOME MED LIST COMPLETE! XX SCH (10:55)
[2023-10-05] MEDS: NS 1,000 ML IV SCH (12:37)
[2023-10-06] VITALS (14 sets, daily range): BP systolic 126–186; BP diastolic 67–106; TEMP 97.4–100.8; O2SAT 93–99
[2023-10-06 10:45] LABS: CALCIUM LEVEL 9.7 MG/DL (8.3-10.6); CREATININE FOR GFR 1.39 MG/DL (0.55-1.30); GLOMERULAR FILTRATION RATE 39.3 (>39); POTASSIUM SERUM 3.9 MMOL/L (3.5-5.1)
[2023-10-06] MEDS ORDERED: hydrALAZINE 20MG/ML 1ML VIAL IV PRN (11:20)
[2023-10-06] MEDS: ACETAMINOPHEN *IV* 1,000 MG in IV 1 EA IV PRN (11:43)
[2023-10-06] MEDS: D5W/0.9% SODIUM CHLORIDE 1,000 ML IV SCH (19:26)
[2023-10-07 00:04] VITALS: BP 181/91; TEMP 98; O2SAT 99
[2023-10-07 04:06] VITALS: BP 174/93; TEMP 97.9; O2SAT 99
[2023-10-07 08:00] VITALS: BP 169/86; TEMP 97.1; O2SAT 98
[2023-10-07 14:00] VITALS: BP 160/99; TEMP 98.8; O2SAT 97
[2023-10-07 20:05] VITALS: BP 161/99; TEMP 97.9
[2023-10-08] VITALS (7 sets, daily range): BP systolic 135–165; BP diastolic 76–87; TEMP 97.3–97.9; O2SAT 95–99
[2023-10-08 07:55] LABS: HEMOGLOBIN 10.6 g/dl (12.0-15.5); MEAN CORPUSCULAR HEMOGLOBIN 30.6 pg (27.0-33.0); MEAN CORPUSCULAR HGB CONC 33.1 g/dl (32.0-36.5); MEAN CORPUSCULAR VOLUME 92.5 fl (80.0-96.0); PLATELET COUNT, AUTOMATED 148 10^3/uL (150-450); RED BLOOD COUNT 3.46 10^6/uL (4.00-5.40); WHITE BLOOD COUNT 5.5 10^3/uL (4.0-10.0)
[2023-10-08] MEDS: ALBUTEROL SULFATE 2.5MG/0.5ML INH NEB SOLN NEB ONE (08:26)
[2023-10-08 08:33] LABS: CALCIUM LEVEL 9.6 MG/DL (8.3-10.6); CREATININE FOR GFR 1.35 MG/DL (0.55-1.30); GLOMERULAR FILTRATION RATE 40.7 (>39); POTASSIUM SERUM 3.3 MMOL/L (3.5-5.1)
[2023-10-08] MEDS: ALBUTEROL SULFATE 2.5MG/0.5ML INH NEB SOLN NEB PRN (11:45)
[2023-10-08] MEDS: KCL 40MEQ IN D5/NS 1000ML 1,000 ML IV SCH (12:11)
[2023-10-08] MEDS: dexAMETHasone 20MG/5ML VIAL IV ONE (12:11)
[2023-10-08] MEDS: ALBUTEROL SULFATE 2.5MG/0.5ML INH NEB SOLN NEB SCH (14:05)
[2023-10-08] MEDS ORDERED: ALBUTEROL SULFATE 2.5MG/0.5ML INH NEB SOLN NEB SCH (16:00)
[2023-10-08] MEDS: dexAMETHasone 20MG/5ML VIAL IV SCH (21:15)
[2023-10-09 05:17] VITALS: BP 162/94; TEMP 97.9; O2SAT 99
[2023-10-09 14:53] VITALS: BP 173/105; TEMP 97.7; O2SAT 98
[2023-10-09 15:00] VITALS: BP 160/92; O2SAT 98
[2023-10-09] MEDS: ASPIRIN 300 MG SUPP PR SCH (18:41)
[2023-10-09] MEDS: MORPHINE 2 MG/ML 1ML VIAL IV PRN (19:46)
[2023-10-09 20:36] VITALS: BP 160/90; TEMP 98.1; O2SAT 97
[2023-10-10 06:00] VITALS: BP 170/90; TEMP 97.5; O2SAT 96
[2023-10-10 06:57] LABS: HEMOGLOBIN 10.9 g/dl (12.0-15.5); MEAN CORPUSCULAR HEMOGLOBIN 30.9 pg (27.0-33.0); MEAN CORPUSCULAR HGB CONC 32.1 g/dl (32.0-36.5); MEAN CORPUSCULAR VOLUME 96.3 fl (80.0-96.0); PLATELET COUNT, AUTOMATED 166 10^3/uL (150-450); RED BLOOD COUNT 3.53 10^6/uL (4.00-5.40); WHITE BLOOD COUNT 6.8 10^3/uL (4.0-10.0)
[2023-10-10] MEDS: cloNIDine HCL 0.1 MG/24 HR PATCH TOP SCH ×2 (09:00)
[2023-10-10 14:00] VITALS: BP 160/88; TEMP 97.5; O2SAT 97
[2023-10-10] MEDS: PANTOPRAZOLE 40MG VIAL IV SCH (14:48)
[2023-10-10] MEDS: MORPHINE 2 MG/ML 1ML VIAL IV PRN (15:31)
[2023-10-10] MEDS ORDERED: MORPHINE 2 MG/ML 1ML VIAL IV PRN (17:35)
[2023-10-10] MEDS: LORazepam 2 MG/ML 1ML VIAL IV PRN (18:06)
[2023-10-10 19:22] VITALS: O2SAT 95
[2023-10-11 07:08] VITALS: O2SAT 97
[2023-10-11] MEDS: dexAMETHasone 20MG/5ML VIAL IV SCH (08:24)
[2023-10-11 10:14] VITALS: O2SAT 96
[2023-10-11 13:38] VITALS: O2SAT 95
[2023-10-11 18:04] VITALS: O2SAT 98
[2023-10-11] MEDS: SCOPOLAMINE 1MG TRANSDERMAL PATCH TOP SCH (18:14)
[2023-10-11] MEDS: LORazepam 1 MG TAB PO PRN (20:50)
[2023-10-11] MEDS: MORPHINE 10MG/0.5ML ORAL CONCENTRATE SOLUTION U/D SL PRN (20:51)
[2023-10-12] MEDS: LORazepam 2 MG TAB PO PRN (01:28)
[2023-10-12] MEDS: MORPHINE 10MG/0.5ML ORAL CONCENTRATE SOLUTION U/D SL PRN (01:28)
== END 2023-10-14 17:30 | disposition expired | DRG 61 ==
LOC: M ED 08:19 → EDBD 08:19 → M ED INP 09:41 → M ICU 15:15 → M MS5PR 10-07 20:00
PROVIDERS: ADMIT Internal Medicine Pulmonary Disease; ATTEND General Practice
DX: I63.9 Cerebral infarction, unspecified (principal); R40.20 Unspecified coma; G93.41 Metabolic encephalopathy; G93.6 Cerebral edema; J96.01 Acute respiratory failure with hypoxia; I69.354 Hemiplegia and hemiparesis following cerebral infarction affecting left non-dominant side; N17.9 Acute kidney failure, unspecified; L97.419 Non-pressure chronic ulcer of right heel and midfoot with unspecified severity; R26.89 Other abnormalities of gait and mobility; E87.6 Hypokalemia; I48.91 Unspecified atrial fibrillation; G93.2 Benign intracranial hypertension; D64.9 Anemia, unspecified; I10 Essential (primary) hypertension; Z66 Do not resuscitate; I65.23 Occlusion and stenosis of bilateral carotid arteries; E78.5 Hyperlipidemia, unspecified; Z99.3 Dependence on wheelchair; Z79.01 Long term (current) use of anticoagulants; Z79.899 Other long term (current) drug therapy